=== PATIENT | male | born 1990 | race African-American/Black ===

== ENCOUNTER 2025-01-05 09:04 | Inpatient (IN) | payer OTHER ==
[~2025-01-05] VITALS: Ht 180.3 cm; Wt 113.2 kg
--- NOTE | 2025-01-05 09:45 | ED.PDOC ---
Musculoskeletal HPI Comments A 34 YEAR OLD MALE PRESENTS TO THE ED WITH COMPLAINT OF LEFT KNEE PAIN OF X3 WEEKS. PATIENT STATES THAT KNEE PAIN RADIATES DOWN LEFT LEG WITH NO ASSOCIATED ALLEVIATING FACTORS. WALKING AND PHYSICAL ACTIVITY INCREASES LEFT LOWER LEG PAIN. RECENT A FEW DAYS, SYMPTOMS WORSENED AND PATIENT CAME TO THE ED FOR FURTHER EVALUATION. PATIENT DENIES FEVER, CHILLS, SHORTNESS OF BREATH, CHEST PAIN, ABDOMINAL PAIN, NAUSEA, VOMITING, HEADACHE, OR OTHER COMPLAINTS. NO OTHER SYMPTOMS OR MODIFYING FACTORS AT THIS TIME. PATIENT IS ALERT, ORIENTED X 4, AND HAS STEADY GAIT. Chief Complaint: Lower Extremity Time Seen by MD: 09:23 Reviewed Notes: Nurses Notes, Medications, Allergies Allergies: Coded Allergies: NO KNOWN ALLERGIES (Unverified , 01/05/25) Information Source: Patient Mode of Arrival: Ambulatory Location: Left Extremity Location: Knee, Leg Timing: Weeks Prehospital treatment: None Severity: Moderate Able to Move Extremity: No Bear Weight: Limited Pain: Moderate Circumstances: Spontaneous Onset of Symptoms: Spontaneous Symptoms: Swelling, Pain DVT Risk Factors: NONE Last Tetanus: UTD Associated signs and symptoms: Knee pain, Leg pain Past Medical History PAST MEDICAL HISTORY: Denies Surgical History: Denies all surgeries Family History Family History: Reviewed,noncontributory to illness, No family hx of Cancer, No family hx of DM, No family hx of Heart nilay, No family hx of HTN, No family hx ofKidney nilay, No family hx of Liver nilay, No family hx of Lung nilay, No family hx of Stroke Social History Smoker: Non-Smoker Alcohol: Denies ETOH Use Drugs: Denies Drug Use Lives In: Home Constitutional: denies: chills, diaphoresis, fatigue, fever, malaise, sweats, weakness, others EENTM: denies: blurred vision, double vision, ear bleeding, ear discharge, ear drainage, ear pain, ear ringing, eye pain, eye redness, hearing loss, mouth pain, mouth swelling, nasal discharge, nose bleeding, nose congestion, nose pain, photophobia, tearing, throat pain, throat swelling, voice changes, others Respiratory: denies: cough, hemoptysis, orthopnea, SOB at rest, shortness of breath, SOB with excertion, stridor, wheezing, others Cardiovascular: denies: chest pain, dizzy spells, diaphoresis, Dyspnea on exertion, edema, irregular heart beat, left arm pain, lightheadedness, palpitat ions, PND, syncope, others Gastrointestinal: denies: abdomen distended, abdominal pain, blood streaked bow els, constipated, diarrhea, dysphagia, difficulty swallowing, hematemesis, melena, nausea, poor appetite, poor fluid intake, rectal bleeding, rectal pain, vomiting, others Genitourinary: denies: burning, dysuria, flank pain, frequency, hematuria, incontinence, penile discharge, penile sore, pain, testicle pain, testicle swelling, urgency, others Neurological: denies: dizziness, fainting, headache, left sided numbness, left sided weakness, numbness, paresthesia, pre-existing deficit, right sided numbness, right sided weakness, seizure, speech problems, tingling, tremors, weakness, others Musculoskeletal: reports: muscle pain, others (LEFT KNEE/LEG PAIN ); denies: back pain, gout, joint pain, joint swelling, muscle stiffness, neck pain Integumetry: denies: bruises, change in color, change in hair/nails, dryness, laceration, lesions, lumps, rash, wounds, others Allergic/Immunocompromised: denies: Difficulty Healing, Frequent Infections, Hives, Itching, others Hematologic/Lymphatic: denies: anemia, blood clots, easy bleeding, easy bruising, swollen glands, others Endocrine: denies: excessive hunger, excessive sweating, excessive thirst, excessive urination, flushing, intolerance to cold, intolerance to heat, unexplained weight gain, unexplained weight loss, others Psychiatric: denies: anxiety, bipolar disorder, depression, hopeless, panic disorder, schizophrenia, sleepless, suicidal, others All Other Systems: Reviewed and Negative Physical Exam General Appearance: No Apparent Distress, Normal HEENT: Normal ENT Inspection, PERRL/EOMI, Pharynx Normal, TMs Normal Neck: Full Range of Motion, Non-Tender, Normal, Normal Inspection Respiratory: Chest Non-Tender, Lungs Clear, No Accessory Muscle Use, No Respiratory Distress, Normal Breath Sounds Cardiovascular: No Edema, No JVD, No Murmur, No Gallop, Normal Peripheral Pulses, Regular Rate/Rhythm Breast Exam: Deferred Gastrointestinal: No Organomegaly, Non Tender, No Pulsatile Mass, Normal Bowel Sounds, Soft Genitalia: Deferred Pelvic: Deferred Rectal: Deferred Extremities: No calf tenderness, Normal capillary refill, Normal range of motion, No pedal edema, Swelling (TENDERNESS AND MILD SWELLING ON LEFT LOWER LEG, +DVT SIGNS. ), Tender (TENDERNESS, MILD SWELLING AND ERYTHEMA ON LEFT LOWER LEG. ) Musculoskeletal : Apperance: Normal Neurologic: Alert, fashion artist II-XII nml as Tested, No Motor Deficits, Normal Affect, Normal Mood, No Sensory Deficits Cerebellar Function: Normal Reflexes: Normal Skin: Dry, Normal Color, Warm Peripheral Pulses: 2+ carotid (R), 2+ carotid (L), 2+ femoral (L), 2+ dorsalis pedis (R), 2+ dorsalis pedis (L) Lymphatic: No Adenopathy Was a procedure done? Was a procedure done?: No Differential Diagnosis EXT Differential Diagnosis: Cellulitis, Deep Vein Thrombosis, Fracture, Sprain, Laceration, Contusion, Strain, Bursitis X-Ray, Labs, Meds, VS Vital Signs Date Time Temp Pulse Resp B/P (MAP) Pulse Ox O2 Delivery O2 Flow Rate FiO2 01/05/25 13:00 98.3 82 14 149/109 (122) 92 98.3 01/05/25 12:32 162/117 01/05/25 11:49 84 13 99 Room Air* 0 21 01/05/25 11:31 184/125 01/05/25 11:20 84 13 184/125 (144) 99 01/05/25 09:19 98.8 109 16 184/127 (146) 95 98.8 182/102 (128) Lab Test 01/05/25 11:10 01/05/25 10:53 Range/Units White Blood Count 5.9 4.4-10.8 10^3/uL Red Blood Count 5.38 4.5-5.90 10^6/uL Hemoglobin 16.3 13.5-17.5 g/dL Hematocrit 49.6 41.0-53.0 % Mean Corpuscular Volume 92.2 80.0-100.0 fL Mean Corpuscular Hemoglobin 30.3 28.0-32.0 pg Mean Corpuscular Hemoglobin Concent 32.9 32.0-36.0 g/dL Red Cell Distribution Width 16.3 H 11.8-14.3 % Platelet Count 418 140-450 10^3/uL Mean Platelet Volume 7.2 6.9-10.8 fL Neutrophils (%) (Auto) 51.2 37.0-80.0 % Lymphocytes (%) (Auto) 36.3 10.0-50.0 % Monocytes (%) (Auto) 9.2 0.0-12.0 % Eosinophils (%) (Auto) 1.8 0.0-7.0 % Basophils (%) (Auto) 1.5 0.0-2.0 % Neutrophils # (Auto) 3.0 1.6-8.6 10 ^3/uL Lymphocytes # (Auto) 2.2 0.4-5.4 10 ^3/uL Monocytes # (Auto) 0.5 0-1.3 10 ^3/uL Eosinophils # (Auto) 0.1 0-0.8 10 ^3/uL Basophils # (Auto) 0.1 0-0.2 10 ^3/uL Nucleated Red Blood Cells 0.1 % Sodium Level 141 136-145 mmol/L Potassium Level 4.2 3.5-5.1 mmol/L Chloride Level 105 98-107 mmol/L Carbon Dioxide Level 27 20-31 mmol/L Anion Gap 9 5-15 Blood Urea Nitrogen 7 L 9-23 mg/dL Creatinine 1.08 0.700-1.30 mg/dL Glomerular Filtration Rate Calc 93 >90 mL/min BUN/Creatinine Ratio 6.5 L 10.0-20.0 Serum Glucose 103 74-106 mg/dL Calcium Level 10.5 H 8.7-10.4 mg/dL Prothrombin Time 10.5 9.3-11.8 sec Prothrombin Time INR 0.99 0.9-1.15 Current Medications Medications (Trade) Dose Ordered Sig/Virgen Route Start Time Stop Time Status Last Admin Enoxaparin Sodium (Lovenox) 90 mg ONCE ONCE SC 01/05/25 10:45 01/05/25 10:48 DC 01/05/25 11:01 Sodium Chloride 1,000 ml @ 150 mls/hr Q6H40M ONCE IV 01/05/25 10:45 01/05/25 17:24 01/05/25 10:55 Acetaminophen/ Hydrocodone Bitart ([place] 10/325MG Tab) 1 tab ONCE ONCE PO 01/05/25 10:45 01/05/25 10:48 DC 01/05/25 11:01 Clonidine HCl (Catapres Tablet) 0.2 mg ONCE ONCE PO 01/05/25 11:30 01/05/25 11:31 DC 01/05/25 11:31 LT Lower DVT HISTORY: left lower leg pain COMPARISON: None TECHNIQUE: Duplex doppler evaluation of the deep venous system of the lower extremity from the common femoral veins, superficial femoral vein, great saphenous vein, deep femoral vein, popliteal vein, and calf veins, including color doppler and spectral/pulsed waveform analysis, was performed. FINDINGS: Left: - Common femoral vein: Compressible - Deep femoral vein: Compressible - Femoral vein: Compressible - Popliteal vein: Compressible - Posterior tibial vein: No compressible - Other: Nothing IMPRESSION: Left PTV DVT. X-Ray, Labs, Meds, VS Comment EXTERNAL MEDICAL RECORDS REVIEWED: [NONE] INDEPENDENT HISTORIANS: [NONE] SOCIAL DETERMINANTS OF HEALTH: [NONE] LABS ORDERED: NONE REVIEWED AND INTERPRETED RESULTS: NONE IMAGING ORDERED: LT LOWER DVT TREATMENTS ORDERED: HEPLOCK IV, LOVENOX 100MG/ML, SODIUM CHLORIDE 0.9% , NORCO 10/325 MG, CLONIDINE 0.2MG PO PROCEDURES PERFORMED: NONE CRITICAL CARE TIME: NONE Images Reviewed?: Images reviewed and evaluated by me Time of 1ST Reevaluation: 11:03 Reevaluation 1ST: Unchanged Patient Education/Counseling: Diagnosis, Treatment Family Education/Counseling: Diagnosis, Treatment Departure 1 Departure Time of Disposition: 11:00 Impression: Primary Impression: Left leg DVT Qualified Codes: I82.432 - Acute embolism and thrombosis of left popliteal vein Additional Impression: Uncontrolled hypertension Disposition: ADMITTED INPATIENT Condition: Serious Critical Care Note Critical Care Time?: No Stability Stability form required: Yes Unstable for transfer: Requires medication, ED Physician Assesment, Possible rapid decline Heart Score Heart Score: Heart Score Response (Comments) Value History N/A 0 EKG N/A 0 Age N/A 0 Risk Factors N/A 0 Troponin N/A 0 Total 0 LUX VILLANUEVA Jan 05, 2025 09:45
--- NOTE | 2025-01-05 10:36 | DVH ---
US LT Lower DVT HISTORY: left lower leg pain COMPARISON: None TECHNIQUE: Duplex doppler evaluation of the deep venous system of the lower extremity from the common femoral veins, superficial femoral vein, great saphenous vein, deep femoral vein, popliteal vein, an d calf veins, including color doppler and spectral/pulsed waveform analysis, was performed. FINDINGS: Left: - Common femoral vein: Compressible - Deep femoral vein: Compressible - Femoral vein: Compressible - Popliteal vein: Compressible - Posterior tibial vein: No compressible - Other: Nothing IMPRESSION: Left PTV DVT.
[2025-01-05] MEDS: SODIUM CHLORIDE 0.9% 1,000 ML IV ONE (10:55)
[2025-01-05] MEDS: ENOXAPARIN SOD 100 MG/1 ML SYRINGE SC ONE (11:01)
[2025-01-05] MEDS: HYDROcodone-ACET 10/325MG TAB PO ONE (11:01)
[2025-01-05 11:37] LABS: Hematocrit 49.6 % (41.0-53.0); Hemoglobin 16.3 g/dL (13.5-17.5); Mean Corpuscular Hemoglobin 30.3 pg (28.0-32.0); Mean Corpuscular Volume 92.2 fL (80.0-100.0); Nucleated Red Blood Cells % 0.1 %
[2025-01-05 11:38] LABS: Anion Gap 9 (5-15); Carbon Dioxide 27 mmol/L (20-31); Chloride 105 mmol/L (98-107); Potassium 4.2 mmol/L (3.5-5.1); Sodium 141 mmol/L (136-145)
[2025-01-05 11:43] LABS: Glucose 103 mg/dL (74-106)
[2025-01-05 11:43] LABS: INR 0.99 (0.9-1.15); Prothrombin Time 10.5 sec (9.3-11.8)
[2025-01-05 11:44] LABS: BUN/Creatinine Ratio 6.5 (10.0-20.0)
[2025-01-05 11:46] LABS: Blood Urea Nitrogen 7 mg/dL (9-23); Calcium 10.5 mg/dL (8.7-10.4)
[2025-01-05 11:49] VITALS: PULSE 84; RESP 13; O2SAT 99
[2025-01-05] MEDS ORDERED: NITROGLYCERIN 0.4 MG SL TAB SL PRN (13:30)
[2025-01-05] MEDS ORDERED: ACETAMINOPHEN 325 MG TAB PO PRN (13:30)
[2025-01-05] MEDS ORDERED: MORPHINE SULFATE INJ 2 MG/ml SYRG IV PRN (13:30)
[2025-01-05] MEDS ORDERED: ONDANSETRON HCL 4 MG/2 ML VIAL IV PRN (13:30)
--- NOTE | 2025-01-05 13:35 | DVHHP2 ---
History of Present Illness Reason for Visit: Left lower extremity pain History of Present Illness Barber Starks is a 34-year-old male with no past medical history who presents to the ED with left lower extremity pain that started from the back of the left knee down to his ankle for the last 3 weeks. Patient reports that his current pain is 7/10 throbbing and constant. He states that standing makes it worse. He reports that he was traveling back and forth down to [place] while driving. 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 He also reports that he lives at home with his who does not drink. Patient denies any chest pain, shortness of breath, fever, chills, lightheadedness, weakness, dizziness, abdominal pain, nausea, vomiting, diarrhea, recent trauma or injury, recent ingestion of spoiled food, recent sick contacts, or urinary symptoms. Past Surgical History: None Family History: Hypertension, Other (Mom with hypertension and asthma) Smoke: No ALCOHOL: heavy Drugs: None Lives: with Family Domestic Violence: Neg Review of Systems Musculoskeletal: leg pain Allergies: Coded Allergies: NO KNOWN ALLERGIES (Unverified , 01/05/25) Exam Vital Signs Vital Signs Date Time Temp Pulse Resp B/P (MAP) Pulse Ox O2 Delivery O2 Flow Rate FiO2 01/05/25 12:32 162/117 01/05/25 11:49 84 13 99 Room Air* 0 21 01/05/25 09:19 98.8 98.8 General Appearance: Alert, Oriented X3, Cooperative, No acute distress HEENT: Atraumatic, PERRLA, EOMI, Mucous membr. moist/pink Respiratory: Clear to auscultation, Normal air movement Cardiovascular: Normal S1, Normal S2, No murmurs Abdominal: Normal bowel sounds Extremities: No clubbing, No cyanosis, No edema, Normal pulses Skin: No significant lesion Neuro: Normal gait, Normal speech, Strength at 5/5 X4 ext, Normal tone, Sensation intact Psych/Mental Status: Mental status NL, Mood NL Labs/Xrays Labs Test 01/05/25 11:10 01/05/25 10:53 Range/Units White Blood Count 5.9 4.4-10.8 10^3/uL Red Blood Count 5.38 4.5-5.90 10^6/uL Hemoglobin 16.3 13.5-17.5 g/dL Hematocrit 49.6 41.0-53.0 % Mean Corpuscular Volume 92.2 80.0-100.0 fL Mean Corpuscular Hemoglobin 30.3 28.0-32.0 pg Mean Corpuscular Hemoglobin Concent 32.9 32.0-36.0 g/dL Red Cell Distribution Width 16.3 H 11.8-14.3 % Platelet Count 418 140-450 10^3/uL Mean Platelet Volume 7.2 6.9-10.8 fL Neutrophils (%) (Auto) 51.2 37.0-80.0 % Lymphocytes (%) (Auto) 36.3 10.0-50.0 % Monocytes (%) (Auto) 9.2 0.0-12.0 % Eosinophils (%) (Auto) 1.8 0.0-7.0 % Basophils (%) (Auto) 1.5 0.0-2.0 % Neutrophils # (Auto) 3.0 1.6-8.6 10 ^3/uL Lymphocytes # (Auto) 2.2 0.4-5.4 10 ^3/uL Monocytes # (Auto) 0.5 0-1.3 10 ^3/uL Eosinophils # (Auto) 0.1 0-0.8 10 ^3/uL Basophils # (Auto) 0.1 0-0.2 10 ^3/uL Nucleated Red Blood Cells 0.1 % Sodium Level 141 136-145 mmol/L Potassium Level 4.2 3.5-5.1 mmol/L Chloride Level 105 98-107 mmol/L Carbon Dioxide Level 27 20-31 mmol/L Anion Gap 9 5-15 Blood Urea Nitrogen 7 L 9-23 mg/dL Creatinine 1.08 0.700-1.30 mg/dL Glomerular Filtration Rate Calc 93 >90 mL/min BUN/Creatinine Ratio 6.5 L 10.0-20.0 Serum Glucose 103 74-106 mg/dL Calcium Level 10.5 H 8.7-10.4 mg/dL Prothrombin Time 10.5 9.3-11.8 sec Prothrombin Time INR 0.99 0.9-1.15 US LT Lower DVT HISTORY: left lower leg pain COMPARISON: None TECHNIQUE: Duplex doppler evaluation of the deep venous system of the lower extremity from the common femoral veins, superficial femoral vein, great saphenous vein, deep femoral vein, popliteal vein, and calf veins, including color doppler and spectral/pulsed waveform analysis, was performed. FINDINGS: Left: - Common femoral vein: Compressible - Deep femoral vein: Compressible - Femoral vein: Compressible - Popliteal vein: Compressible - Posterior tibial vein: No compressible - Other: Nothing IMPRESSION: Left PTV DVT. SEPSIS Sepsis Screen Date sepsis recognized/suspect: Jan 05, 2025 Time Sepsis recognized/suspect: 918 Recent Procedure: No On Antibiotic Therapy: No Respiratory Rate >20: No Heart Rate >90: Yes Temp<36 C (96.8 F) or >38.3 C: No SBP <90 or MAP <65 mmHG: No New Acute Mental Status Change: No Is the patient on CPAP, BIPAP,: No Physician Orders Lt Lower Dvt (01/05/25 09:23) Heplock Iv (01/05/25 ) Sodium Chloride 0.9% (01/05/25 10:45) Enoxaparin Sodium (Lovenox) (01/05/25 22:00) Multiple Vitamin W Mineral Tab (Mvi W/ M (01/06/25 10:00) Thiamine Tab (01/06/25 10:00) Folic Acid Tablet (01/06/25 10:00) Admit (01/05/25 13:24) Allergies (01/05/25 13:24) Code Status (01/05/25 13:24) Hydrocodone-Acet 5/325mg Tab ([place] 5/32 (01/05/25 13:30) Ondansetron Hcl (Zofran) (01/05/25 13:30) Complete Blood Count (01/06/25 04:00) Comprehensive Metabolic Panel (01/06/25 04:00) Cardiac Diet-2gna,Lofat,Lochol (01/05/25 Lunch) Acetaminophen Tablet (Tylenol Tablet) (01/05/25 13:30) Nitroglycerin Sublingual (Ntrostat Subli (01/05/25 13:30) Morphine Sulfate Injection (01/05/25 13:30) Stat Ekg For Chest Pain (01/05/25 13:24) Notify Md Of Changes From Base (01/05/25 13:24) Statement Distribution Clerk For 24 Hours (01/05/25 13:24) Emergency Dysrhythmia Protocol (01/05/25 13:24) Rhythm Strips Once Every Shift (01/05/25 13:24) Oxygen By Nasal Cannula (01/05/25 13:24) Urinalysis (01/05/25 13:27) Drug Screen (01/05/25 13:27) Vital Signs Date Time Temp Pulse Resp B/P (MAP) Pulse Ox O2 Delivery O2 Flow Rate FiO2 01/05/25 12:32 162/117 01/05/25 11:49 84 13 99 Room Air* 0 21 01/05/25 11:31 184/125 01/05/25 11:20 84 13 184/125 (144) 99 01/05/25 09:19 98.8 109 16 184/127 (146) 95 98.8 182/102 (128) Laboratory Tests Test 01/05/25 11:10 White Blood Count 5.9 10^3/uL (4.4-10.8) Medications Medications Dose Ordered Sig/Virgen Route Start Time Stop Time Status Last Admin Dose Admin Acetaminophen/ Hydrocodone Bitart 1 tab ONCE ONCE PO 01/05/25 10:45 01/05/25 10:48 DC 01/05/25 11:01 1 TAB Clonidine HCl 0.2 mg ONCE ONCE PO 01/05/25 11:30 01/05/25 11:31 DC 01/05/25 11:31 0.2 MG Enoxaparin Sodium 90 mg ONCE ONCE SC 01/05/25 10:45 01/05/25 10:48 DC 01/05/25 11:01 90 MG Sodium Chloride 1,000 ml @ 150 mls/hr Q6H40M ONCE IV 01/05/25 10:45 01/05/25 17:24 01/05/25 10:55 150 MLS/HR Assessment/Plan Assessment/Plan Assessment Intractable leg pain secondary to LLE DVT Hypertension likely induced by pain Obesity Alcohol use Plan Admit to tele Multivitamins Thiamine Folic acid Therapeutic Lovenox Antihypertensives Antiemetics Pain management NS 1 L given ED PT/INR Ultrasound venous lower extremity noted Diet No home medications per patient DVT prophylaxis-on Lovenox PUD prophylaxis-PPIs Discussed plan of care with patient and nurse Counseled patient on lifestyle modifications, diet, and exercise Counseled patient on alcohol cessation [id number] Advanced care planning discussed [id number] Preventive counseling healthy eating habits, physical activity, and regular checkups Plan discussed with: Patient My Orders Orders - JARAD HAJI Procedure Category Date Status Time Enoxaparin Sodium PHA 01/05/25 Transmitted (Lovenox) 22:00 Multiple Vitamin W PHA 01/06/25 Transmitted Mineral Tab (Mvi W/ M 10:00 Thiamine Tab PHA 01/06/25 Transmitted 10:00 Folic Acid Tablet PHA 01/06/25 Transmitted 10:00 Admit ADMIT 01/05/25 Transmitted 13:24 Allergies BELA 01/05/25 Transmitted 13:24 Code Status CODE 01/05/25 Transmitted 13:24 Hydrocodone-Acet PHA 01/05/25 Transmitted 5/325mg Tab ([place] 13:30 Ondansetron Hcl PHA 01/05/25 Transmitted (Zofran) 13:30 Complete Blood Count LAB 01/06/25 Verified 04:00 Comprehensive LAB 01/06/25 Verified Metabolic Panel 04:00 Cardiac DIET 01/05/25 Transmitted Diet-2gna,Lofat,Lochol Lunch Acetaminophen Tablet [facility] 01/05/25 Transmitted (Tylenol Tablet) 13:30 Nitroglycerin [facility] 01/05/25 Transmitted Sublingual (Ntrostat 13:30 Morphine Sulfate PHA 01/05/25 Transmitted Injection 13:30 Stat Ekg For Chest [facility] 01/05/25 Transmitted Pain 13:24 Notify Md Of Changes [facility] 01/05/25 Transmitted From Base 13:24 Statement Distribution Clerk For [facility] 01/05/25 Transmitted 24 Hours 13:24 Emergency Dysrhythmia [facility] 01/05/25 Transmitted Protocol 13:24 Rhythm Strips Once [facility] 01/05/25 Transmitted Every Shift 13:24 Oxygen By Nasal RT 01/05/25 Transmitted Cannula 13:24 Urinalysis LAB 01/05/25 Verified 13:27 Drug Screen LAB 01/05/25 Verified 13:27 Date of Service: Jan 05, 2025 Billing Provider: JARAD HAJI Common Visit Codes: [id number] INP/OBS CARE (HIGH) Secondary Visit Codes: [id number] COUNSELING IND, [id number] CARE PLAN 30 MINUTES JARAD HAJI Jan 05, 2025 13:35
[2025-01-05] MEDS: PANTOPRAZOLE 40 MG/10 ML VIAL INJ IV SCH (14:13)
[2025-01-05 15:08] LABS: Amphetamine Screen, Urine Neg (NEGATIVE); Barbiturate Scree,Urine Neg (NEGATIVE); Benzodiazephine Screen, Urine Neg (NEGATIVE); Cannabinoid Screen, Urine Neg (NEGATIVE); Cocaine Screen, Urine Neg (NEGATIVE); Opiate Scree,Urine Pos (NEGATIVE); Phencyclidine Screen, Urine Neg (NEGATIVE)
[2025-01-05 15:09] LABS: Urine Protein, UAD TRACE (Negative)
[2025-01-05 18:30] VITALS: BP 151/97; PULSE 78; RESP 18; TEMP 97.7; O2SAT 99
[2025-01-05] MEDS: HYDROcodone-ACET 5/325MG TAB PO PRN (18:53)
[2025-01-05 20:00] VITALS: PULSE 77
[2025-01-05 21:00] VITALS: BP 149/104; PULSE 81; RESP 17; TEMP 98.2; O2SAT 97
[2025-01-05] MEDS: ENOXAPARIN SOD 100 MG/1 ML SYRINGE SC SCH (21:33)
[2025-01-06] VITALS (7 sets, daily range): BP systolic 112–171; BP diastolic 66–122; PULSE 62–105; RESP 16–20; TEMP 97.8–98.7; O2SAT 94–99
[2025-01-06] MEDS: hydrALAZINE HCL 20 MG/ML VL IV PRN (05:36)
[2025-01-06 07:48] LABS: Hematocrit 43.6 % (41.0-53.0); Hemoglobin 14.7 g/dL (13.5-17.5); Mean Corpuscular Hemoglobin 31.0 pg (28.0-32.0); Mean Corpuscular Volume 92.0 fL (80.0-100.0); Nucleated Red Blood Cells % 0.3 %
[2025-01-06 08:16] LABS: Alkaline Phosphatase 62 U/L (46-116); Anion Gap 11 (5-15); BUN/Creatinine Ratio 10.9 (10.0-20.0); Blood Urea Nitrogen 11 mg/dL (9-23); Calcium 9.6 mg/dL (8.7-10.4); Carbon Dioxide 27 mmol/L (20-31); Chloride 101 mmol/L (98-107); Glucose 87 mg/dL (74-106); Potassium 3.8 mmol/L (3.5-5.1); Sodium 139 mmol/L (136-145); Total Protein 7.0 g/dL (5.7-8.2)
[2025-01-06 08:17] LABS: Alanine Aminotransferase 56 U/L (7-40); Albumin 4.3 g/dL (3.2-4.8); Bilirubin, Total 0.8 mg/dL (0.2-1.0)
[2025-01-06] MEDS: THIAMINE HCL 100 MG TAB PO SCH (09:37)
[2025-01-06] MEDS: MULTIPLE VITAMINS W/ MINERALS TAB PO SCH (09:37)
[2025-01-06] MEDS: FOLIC ACID 1 MG TAB PO SCH (09:37)
[2025-01-06] MEDS: ACETAMINOPHEN 325 MG TAB PO SCH (14:00)
[2025-01-06] MEDS: MORPHINE SULFATE 4 MG/ML SYR/VIAL IV PRN (14:22)
--- NOTE | 2025-01-06 14:30 | DVHPN2 ---
Assessment/Plan Assessment/Plan progress note 34 M with daily alcohol use admitted for leg pain, found to have L pop dvt physical exam aox4 PERLLA MMM clear breath sounds s1 s2 rrr abdomen soft ankle edema LLE labs ekg imaging reviewed assessment and plan L leg DVT possibly unprovoked elevated BP alcohol use alcohol withdrawal? CIWA [place] taper (only evidence of withdrawal is elevated Bp and slight tremor) lovenox therapeutic switch to Eliquis tomorrow thiamine pain mgmt diet reg dvt ppx on AC full code Plan discussed with: Patient My Orders Orders - MIGUEL AGUILAR MD Procedure Category Date Status Time Morphine Sulfate PHA 01/06/25 In Process Injection 11:45 Acetaminophen Tablet PHA 01/06/25 In Process (Tylenol Tablet) 14:00 Discontinue Tele BELA 01/06/25 In Process 14:24 Transfer Orders XFER 01/06/25 Transmitted 14:24 Basic Metabolic Panel LAB 01/07/25 Verified 04:00 Complete Blood Count LAB 01/07/25 Verified 04:00 PTPTT LAB 01/07/25 Verified 04:00 Etoh Withdrawal BELA 01/06/25 In Process Assessment 14:24 Etoh Withdrawal BELA 01/06/25 In Process Assessment 14:24 Chlordiazepoxide Hcl PHA 01/06/25 Logged Capsule (Librium Ca 14:30 Chlordiazepoxide Hcl PHA 01/07/25 Logged Capsule (Librium Ca 07:00 Date of Service: Jan 06, 2025 Billing Provider: MIGUEL AGUILAR MD Common Visit Codes: [id number] INP/OBS CARE(HIGH) MIGUEL AGUILAR MD Jan 06, 2025 14:29
[2025-01-07] VITALS (7 sets, daily range): BP systolic 108–169; BP diastolic 67–121; PULSE 81–128; RESP 17–100; TEMP 97–98.7; O2SAT 97–100
[2025-01-07] MEDS: hydrALAZINE HCL 20 MG/ML VL IV PRN (01:51)
[2025-01-07 06:17] LABS: Hematocrit 44.2 % (41.0-53.0); Hemoglobin 15.3 g/dL (13.5-17.5); Mean Corpuscular Hemoglobin 31.6 pg (28.0-32.0); Mean Corpuscular Volume 91.2 fL (80.0-100.0); Nucleated Red Blood Cells % 0.2 %
[2025-01-07 06:28] LABS: INR 0.97 (0.9-1.15); Partial Thromboplastin Time 31.3 SEC (24.5-34.5); Prothrombin Time 10.3 sec (9.3-11.8)
[2025-01-07 06:29] LABS: Anion Gap 11 (5-15); Carbon Dioxide 28 mmol/L (20-31); Chloride 99 mmol/L (98-107); Potassium 3.7 mmol/L (3.5-5.1); Sodium 138 mmol/L (136-145)
[2025-01-07 06:31] LABS: Calcium 10.3 mg/dL (8.7-10.4)
[2025-01-07 06:36] LABS: BUN/Creatinine Ratio 10.1 (10.0-20.0); Blood Urea Nitrogen 10 mg/dL (9-23); Glucose 76 mg/dL (74-106)
[2025-01-07] MEDS ORDERED: IBU600T PO (13:43)
[2025-01-07] MEDS ORDERED: THIA100T10 PO (13:43)
[2025-01-07] MEDS ORDERED: APIX5TAB PO (13:43)
[2025-01-07] MEDS ORDERED: LOSA-534 PO (13:45)
--- NOTE | 2025-01-07 13:47 | DVHDS2 ---
Discharge Summary Date of Admission Jan 05, 2025 at 13:24 Date of Discharge: Jan 07, 2025 Labs/Diagnostic Data: Laboratory Results Test 01/07/25 04:41 01/06/25 04:27 01/05/25 14:02 White Blood Count 6.3 10^3/uL (4.4-10.8) Red Blood Count 4.85 10^6/uL (4.5-5.90) Hemoglobin 15.3 g/dL (13.5-17.5) Hematocrit 44.2 % (41.0-53.0) Mean Corpuscular Volume 91.2 fL (80.0-100.0) Mean Corpuscular Hemoglobin 31.6 pg (28.0-32.0) Mean Corpuscular Hemoglobin Concent 34.7 g/dL (32.0-36.0) Red Cell Distribution Width 15.7 % (11.8-14.3) Platelet Count 399 10^3/uL (140-450) Mean Platelet Volume 7.5 fL (6.9-10.8) Neutrophils (%) (Auto) 51.0 % (37.0-80.0) Lymphocytes (%) (Auto) 33.7 % (10.0-50.0) Monocytes (%) (Auto) 11.3 % (0.0-12.0) Eosinophils (%) (Auto) 3.1 % (0.0-7.0) Basophils (%) (Auto) 0.9 % (0.0-2.0) Neutrophils # (Auto) 3.2 10 ^3/uL (1.6-8.6) Lymphocytes # (Auto) 2.1 10 ^3/uL (0.4-5.4) Monocytes # (Auto) 0.7 10 ^3/uL (0-1.3) Eosinophils # (Auto) 0.2 10 ^3/uL (0-0.8) Basophils # (Auto) 0.1 10 ^3/uL (0-0.2) Nucleated Red Blood Cells 0.2 % Prothrombin Time 10.3 sec (9.3-11.8) Prothrombin Time INR 0.97 (0.9-1.15) Activated Partial Thromboplast Time 31.3 SEC (24.5-34.5) Sodium Level 138 mmol/L (136-145) Potassium Level 3.7 mmol/L (3.5-5.1) Chloride Level 99 mmol/L (98-107) Carbon Dioxide Level 28 mmol/L (20-31) Anion Gap 11 (5-15) Blood Urea Nitrogen 10 mg/dL (9-23) Creatinine 0.99 mg/dL (0.700-1.30) Glomerular Filtration Rate Calc 103 mL/min (>90) BUN/Creatinine Ratio 10.1 (10.0-20.0) Serum Glucose 76 mg/dL (74-106) Calcium Level 10.3 mg/dL (8.7-10.4) Total Bilirubin 0.8 mg/dL (0.2-1.0) Aspartate Amino Transferase (AST) 83 U/L (13-40) Alanine Aminotransferase (ALT) 56 U/L (7-40) Alkaline Phosphatase 62 U/L (46-116) Total Protein 7.0 g/dL (5.7-8.2) Albumin 4.3 g/dL (3.2-4.8) Urine Color Yellow (Yellow) Urine Clarity Clear (Clear) Urine pH 5.5 (5.0-9.0) Urine Specific [place] 1.023 (1.001-1.035) Urine Protein Trace (Negative) Urine Ketones Negative (Negative) Urine Blood Negative /uL (Negative) Urine Nitrite Negative (Negative) Urine Bilirubin Negative (Negative) Urine Urobilinogen Normal mg/dL (Negative) Urine Leukocyte Esterase Negative /uL (Negative) Urine RBC 1 /hpf (0 - 3) Urine Microscopic WBC < 1 /HPF (0-3) Urine Squamous Epithelial Cells None seen /hpf (<5) Urine Bacteria None seen /hpf (None Seen) Urine Mucus Few (None Seen) Urine Glucose Normal mg/dL (Normal) Urine Opiates Screen Pos (NEGATIVE) Urine Fentanyl Screen Neg (NEGATIVE) Urine Barbiturates Screen Neg (NEGATIVE) Urine Phencyclidine Screen Neg (NEGATIVE) Urine Amphetamines Screen Neg (NEGATIVE) Urine Benzodiazepines Screen Neg (NEGATIVE) Urine Cocaine Screen Neg (NEGATIVE) Urine Cannabinoids Screen Neg (NEGATIVE) Other Laboratory Tests 01/07/25 04:41 Brief Hx & Hospital Course: 34 M with daily alcohol use admitted for leg pain, found to have L pop dvt. he also admitted to ~300cc liquor daily. tapered on librium, started on lovenox. will dc with eliquis, motrin. also have htn, ran out of med. starting losartan. dc clinic in 7 days. needs PCP for hypercoagulability w/u Condition at Discharge: Good Final Diagnosis/Problems List DVT not clear if unprovoked alcohol use possible alcohol withdrawal HTN Discharge Disposition: Home Discharge Instruct/Medications Diet: Cardiac 2g Na,low cholest Activity: No Restrictions, As Tolerated Follow Up/Referral: dc clinic Medications: eliquis 10mg BID 7 days followed by 5mg BID Scheduled Apixaban Base (Eliquis), 5 MG PO BID Apixaban Base (Eliquis), 10 MG PO BID Losartan Potassium (Losartan Potassium), 1 TAB PO DAILY Thiamine Hcl (Vitamin B-1), 100 MG PO DAILY Scheduled PRN Ibuprofen Micronized (Motrin Tablet), 600 MG PO TID PRN Discharge Statement: "Patient was advised to return to the ER or call 911 if any headaches, dizziness, shortness of breath, chest pain, abdominal pain, bleeding, fevers, or worsening of medical condition. Patient was counseled about treatment plan, medications, possible side effects, patientverbalized understanding. All questions were answered to the best of my ability. This discharge took greater then 30 minutes in planning, reviewing documentation, counseling the patient, and discussing with other team members." ASSESSMENT ASSESSMENT Assessment DVT not clear if unprovoked alcohol use possible alcohol withdrawal HTN Date of Service: Jan 07, 2025 Billing Provider: MIGUEL AGUILAR MD Common Visit Codes: 71059-THQ/OBS DISCH DAY >30min MIGUEL AGUILAR MD Jan 07, 2025 13:47
== END 2025-01-07 17:41 | disposition home or self-care (01) | DRG 300 ==
LOC: ER 09:04 → OVERFLOW 13:24 → TELE-WESTW 18:17 → WEST WING 01-06 14:50
DX: I82.442 Acute embolism and thrombosis of left tibial vein (principal); F10.939 Alcohol use, unspecified with withdrawal, unspecified; I10 Essential (primary) hypertension; Z68.31 Body mass index [BMI] 31.0-31.9, adult; E66.9 Obesity, unspecified; Z82.49 Family history of ischemic heart disease and other diseases of the circulatory system; Z82.5 Family history of asthma and other chronic lower respiratory diseases; Z87.891 Personal history of nicotine dependence; Y90.9 Presence of alcohol in blood, level not specified
CPT/HCPCS: 36415; 80048; 80053; 80307; 81001; 85025; 85610; 85730; 93971; 96360; 96372; G0378; J2470

== ENCOUNTER 2025-01-09 14:46 | Inpatient (IN) | payer OTHER ==
[~2025-01-09] VITALS: Ht 180.3 cm; Wt 111.7 kg
[~2025-01-09 14:46] MED LIST: APIX5TAB PO; IBU600T PO; LOSA-534 PO; THIA100T10 PO
--- NOTE | 2025-01-09 15:10 | ED.PDOC ---
History of Present Illness HPI Comments 34-year-old male with PMHx DVT presents with a chief complaint of SOB and neck pain. Patient mentions that he was here on Wednesday and diagnosed with a DVT in his left leg, was admitted and discharged on Wednesday, had follow-up appointment with his primary care doctor today, and was referred back to the ER to rule out PE. Patient mentions that he had complained of SOB and sharp neck pain to the back of his neck. Chief Complaint: Lower Extremity Time Seen by MD: 15:02 Primary Care Provider: NORAH Calhoun Notes: Nurses Notes, Medications, Allergies Allergies: Coded Allergies: NO KNOWN ALLERGIES (Unverified , 01/05/25) Home Meds Active Scripts Losartan Potassium (Losartan Potassium) 50 Mg Tab, 1 TAB PO DAILY, #90 TAB 1 Refill Prov:MIGULE AGUILAR MD 01/07/25 Thiamine Hcl (VITAMIN B-1) 100 Mg Tb, 100 MG PO DAILY for 14 Days, #14 TAB Prov:MIGUEL AGUILAR MD 01/07/25 Ibuprofen Micronized (MOTRIN TABLET) 600 Mg Tb, 600 MG PO TID PRN for 10 Days, #30 TAB *Black box warning-NSAIDS can increase risk of PR & hypertension, GI irritation, ulceration, bleed, perferation. Do not use post cardiac surgery. Use short duration/lowest effective dose. Prov:MIGUEL AGUILAR MD 01/07/25 Apixaban Base (ELIQUIS) 5 Mg Tab, 10 MG PO BID for 7 Days, #7 TAB 10MG BID X 7 DAYS THEN 5MG PO BID FOR AT LEAST 6 MONTHS FOR DVT/PE TREATMENT Prov:MIGUEL AGUILAR MD 01/07/25 Apixaban Base (ELIQUIS) 5 Mg Tab, 5 MG PO BID for 30 Days, #60 TAB 5 Refills Prov:MIGUEL AGUILAR MD 01/07/25 Information Source: Patient Mode of Arrival: Ambulatory Severity: Moderate Timing: Days Duration: Since onset Prehospital treatment: None Past Medical History PAST MEDICAL HISTORY: Denies Surgical History: Denies all surgeries Family History Family History: Reviewed,noncontributory to illness, No family hx of Cancer, No family hx of DM, No family hx of Heart nilay, No family hx of HTN, No family hx ofKidney nialy, No family hx of Liver nilay, No family hx of Lung nilay, No family hx of Stroke Social History Smoker: Non-Smoker Alcohol: Denies ETOH Use Drugs: Denies Drug Use Lives In: Home Constitutional: denies: chills, diaphoresis, fatigue, fever, malaise, sweats, weakness, others EENTM: denies: blurred vision, double vision, ear bleeding, ear discharge, ear drainage, ear pain, ear ringing, eye pain, eye redness, hearing loss, mouth pain, mouth swelling, nasal discharge, nose bleeding, nose congestion, nose pain, photophobia, tearing, throat pain, throat swelling, voice changes, others Respiratory: reports: shortness of breath; denies: cough, hemoptysis, orthopnea, SOB at rest, SOB with excertion, stridor, wheezing, others Cardiovascular: denies: chest pain, dizzy spells, diaphoresis, Dyspnea on exertion, edema, irregular heart beat, left arm pain, lightheadedness, palpitations, PND, syncope, others Gastrointestinal: denies: abdomen distended, abdominal pain, blood streaked bowels, constipated, diarrhea, dysphagia, difficulty swallowing, hematemesis, melena, nausea, poor appetite, poor fluid intake, rectal bleeding, rectal pain, vomiting, others Genitourinary: denies: burning, dysuria, flank pain, frequency, hematuria, incontinence, penile discharge, penile sore, pain, testicle pain, testicle s welling, urgency, others Neurological: denies: dizziness, fainting, headache, left sided numbness, left sided weakness, numbness, paresthesia, pre-existing deficit, right sided numbness, right sided weakness, seizure, speech problems, tingling, tremors, weakness, others Musculoskeletal: reports: neck pain; denies: back pain, gout, joint pain, joint swelling, muscle pain, muscle stiffness, others Integumetry: denies: bruises, change in color, change in hair/nails, dryness, laceration, lesions, lumps, rash, wounds, others Allergic/Immunocompromised: denies: Difficulty Healing, Frequent Infections, Hives, Itching, others Hematologic/Lymphatic: denies: anemia, blood clots, easy bleeding, easy bruising, swollen glands, others Endocrine: denies: excessive hunger, excessive sweating, excessive thirst, excessive urination, flushing, intolerance to cold, intolerance to heat, unexplained weight gain, unexplained weight loss, others Psychiatric: denies: anxiety, bipolar disorder, depression, hopeless, panic disorder, schizophrenia, sleepless, suicidal, others All Other Systems: Reviewed and Negative Physical Exam General Appearance: Moderate Distress HEENT: Normal ENT Inspection, Pharynx Normal, TMs Normal Neck: Full Range of Motion, Non-Tender, Normal, Normal Inspection Respiratory: Chest Non-Tender, Lungs Clear, No Accessory Muscle Use, No Respiratory Distress, Normal Breath Sounds Cardiovascular: No Edema, No JVD, No Murmur, No Gallop, Tachycardia Breast Exam: Deferred Gastrointestinal: No Organomegaly, Non Tender, No Pulsatile Mass, Normal Bowel Sounds, Soft Genitalia: Deferred Pelvic: Deferred Rectal: Deferred Extremities: No calf tenderness, Normal capillary refill, Normal inspection, Normal range of motion, Non-tender, No pedal edema Musculoskeletal : Apperance: Normal Neurologic: Alert, 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 Was a procedure done?: No Differential Dx Considerations may include: ACS, PR, generalized weakness X-Ray, Labs, Meds, VS Vital Signs Date Time Temp Pulse Resp B/P (MAP) Pulse Ox O2 Delivery O2 Flow Rate FiO2 01/09/25 15:15 122 01/09/25 14:55 99.0 139 19 145/97 (113) 96 99.0 Lab Test 01/09/25 16:20 01/09/25 15:23 Range/Units Troponin I High Sensitivity 18 22 </=54 ng/L White Blood Count 6.1 4.4-10.8 10^3/uL Red Blood Count 4.76 4.5-5.90 10^6/uL Hemoglobin 15.1 13.5-17.5 g/dL Hematocrit 43.9 41.0-53.0 % Mean Corpuscular Volume 92.2 80.0-100.0 fL Mean Corpuscular Hemoglobin 31.8 28.0-32.0 pg Mean Corpuscular Hemoglobin Concent 34.5 32.0-36.0 g/dL Red Cell Distribution Width 16.2 H 11.8-14.3 % Platelet Count 496 H 140-450 10^3/uL Mean Platelet Volume 7.3 6.9-10.8 fL Neutrophils (%) (Auto) 57.1 37.0-80.0 % Lymphocytes (%) (Auto) 28.1 10.0-50.0 % Monocytes (%) (Auto) 10.7 0.0-12.0 % Eosinophils (%) (Auto) 3.2 0.0-7.0 % Basophils (%) (Auto) 0.9 0.0-2.0 % Neutrophils # (Auto) 3.5 1.6-8.6 10 ^3/uL Lymphocytes # (Auto) 1.7 0.4-5.4 10 ^3/uL Monocytes # (Auto) 0.7 0-1.3 10 ^3/uL Eosinophils # (Auto) 0.2 0-0.8 10 ^3/uL Basophils # (Auto) 0.1 0-0.2 10 ^3/uL Nucleated Red Blood Cells 0.2 % Prothrombin Time 10.1 9.3-11.8 sec Prothrombin Time INR 0.95 0.9-1.15 Activated Partial Thromboplast Time 28.6 24.5-34.5 SEC D-Dimer, Quantitative 2.33 H 0.0-0.49 mg/L FEU Sodium Level 141 136-145 mmol/L Potassium Level 4.2 3.5-5.1 mmol/L Chloride Level 107 98-107 mmol/L Carbon Dioxide Level 21 20-31 mmol/L Anion Gap 13 5-15 Blood Urea Nitrogen 15 9-23 mg/dL Creatinine 1.28 0.700-1.30 mg/dL Glomerular Filtration Rate Calc 76 >90 mL/min BUN/Creatinine Ratio 11.7 10.0-20.0 Serum Glucose 149 H 74-106 mg/dL Calcium Level 10.6 H 8.7-10.4 mg/dL Current Medications Medications (Trade) Dose Ordered Sig/Virgen Route Start Time Stop Time Status Last Admin Sodium Chloride 1,000 ml @ 60 mls/hr [id number] IV 01/09/25 17:00 01/09/25 17:50 CAT scan of the chest was done to rule out PE. It shows: IMPRESSION: Bilateral pulmonary emboli involving the segmental and subsegmental branches. Right lower lobe consolidation/ nodularity measuring 2.5 cm. Follow-up to resolution to exclude underlying pulmonary neoplasm. Other findings as described. Critical Result: Pulmonary embolism The patient has a CBC which is within normal limits The chemistry panel is within normal limits The D-dimer is elevated at 2.33 IV Hep-Lock was established The patient was given heparin 4000 units IV push The patient was given a heparin drip The patient is being admitted at this time Images Reviewed?: Images reviewed and evaluated by me Time of 1ST Reevaluation: 15:32 Reevaluation 1ST: Improved Patient Education/Counseling: Diagnosis, Treatment, Prognosis Family Education/Counseling: No Family Present SEPSIS Sepsis Screen Physician Orders Heplock Iv (01/09/25 15:07) Ct Angio Chest Contrast (01/09/25 15:07) Troponin-I Hs (01/09/25 18:07) Platelet Monitoring (01/09/25 16:27) Vte Protocol Initiated (01/09/25 16:27) Heparin Per Standardized Proce (01/09/25 16:27) Discontinue All Im Injections (01/09/25 16:27) Heparin Drip/D5w 100units/Ml (01/09/25 21:00) *Consult / (01/09/25 16:49) Clonidine Hcl Tablet (Catapres Tablet) (01/09/25 17:00) Losartan Tablet (Cozaar Tablet) (01/10/25 10:00) Metoprolol Tartrate Tablet (Lopressor Ta (01/09/25 22:00) Allergies (01/09/25 16:49) Code Status (01/09/25 16:49) Sodium Chloride 0.9% (01/09/25 17:00) Oxygen Per Hour (01/09/25 16:49) Hydrocodone-Acet 5/325mg Tab ([place] 5/32 (01/09/25 17:00) Ondansetron Hcl (Zofran) (01/09/25 17:00) Docusate Sodium Capsule (Colace Capsule) (01/09/25 17:00) Complete Blood Count (01/10/25 04:00) Comprehensive Metabolic Panel (01/10/25 04:00) Cardiac Diet-2gna,Lofat,Lochol (01/09/25 Dinner) Condition: Serious (01/09/25 16:49) Acetaminophen Tablet (Tylenol Tablet) (01/09/25 17:00) Bedrest With Bathroom Privileg (01/09/25 16:49) Sequential Compression Device (01/09/25 ) Vital Signs Date Time Temp Pulse Resp B/P (MAP) Pulse Ox O2 Delivery O2 Flow Rate FiO2 01/09/25 15:15 122 01/09/25 14:55 99.0 139 19 145/97 (113) 96 99.0 Laboratory Tests Test 01/09/25 15:23 White Blood Count 6.1 10^3/uL (4.4-10.8) Medications Medications Dose Ordered Sig/Virgen Route Start Time Stop Time Status Last Admin Dose Admin Sodium Chloride 1,000 ml @ 60 mls/hr [id number] IV 01/09/25 17:00 01/09/25 17:50 Departure 1 Departure Time of Disposition: 16:50 Impression: Primary Impression: Bilateral pulmonary embolism Additional Impression: Left leg DVT Qualified Codes: I82.402 - Acute embolism and thrombosis of unspecified deep veins of left lower extremity Disposition: ADMITTED INPATIENT Admit to: [facility] Condition: Fair Critical Care Note Critical Care Time?: Yes (45 min-critical care time only) Stability Stability form required: Yes Unstable for transfer: Telemetry monitoring (Telemetry monitoring required), ED Physician Assesment (Clinical assesment) Heart Score Heart Score: Heart Score Response (Comments) Value History Slightly Suspicious 0 EKG Normal 0 Age <45 0 Risk Factors 1 or 2 risk factors 1 Troponin N/A 0 Total 1 I personally scribed for BEVERLY MUNOZ MD ([email or web address]) on 01/09/25 at 15:10. Electronically submitted by Gideon Noguera ([email or web address]). BEVERLY MUNOZ MD Jan 09, 2025 15:10
[2025-01-09] MEDS: IOHEXOL 350 MG/ML 100ML IJ ONE (15:43)
[2025-01-09 15:45] LABS: Hemoglobin 15.1 g/dL (13.5-17.5); Mean Corpuscular Volume 92.2 fL (80.0-100.0)
--- NOTE | 2025-01-09 15:45 | ECG ---
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
[2025-01-09 15:47] LABS: Hematocrit 43.9 % (41.0-53.0); Mean Corpuscular Hemoglobin 31.8 pg (28.0-32.0); Nucleated Red Blood Cells % 0.2 %
[2025-01-09 15:51] LABS: Potassium 4.2 mmol/L (3.5-5.1); Sodium 141 mmol/L (136-145)
[2025-01-09 15:52] LABS: Anion Gap 13 (5-15); Carbon Dioxide 21 mmol/L (20-31)
[2025-01-09 15:53] LABS: Calcium 10.6 mg/dL (8.7-10.4); Chloride 107 mmol/L (98-107)
[2025-01-09 15:57] LABS: BUN/Creatinine Ratio 11.7 (10.0-20.0); Blood Urea Nitrogen 15 mg/dL (9-23); Glucose 149 mg/dL (74-106)
[2025-01-09] MEDS ORDERED: HEPARIN SODIUM (PORCINE) 5000 UNITS/ML 1ML VIAL IV ONE (16:30)
--- NOTE | 2025-01-09 16:32 | DVH ---
Indication: cp Technique: CT axial images of the chest are obtained with intravenous contrast per CT angiogram prot ocol. Coronal and sagittal reformats were obtained. Radiation Dose Information: CTDI volume is 25 mGy. Dose-length product is 853 mGy*cm Comparison: None FINDINGS: There are filling defects within the right lower lobe segmental and subsegmental branches, left lower lobe segmental and subsegmental branches. RV measures 3.1 cm. LV measures 3.7 cm. The trachea is patent. No pneumothorax. There is right lower lobe consolidation/ nodularity measuring 2.5 cm. Heart normal in size. 8 mm right hilar lymph node. No supraclavicular/ axillary lymphadenopathy. No aggressive osseous process. IMPRESSION: Bilateral pulmonary emboli involving the segmental and subsegmental branches. Right lower lobe consolidation/ nodularity measuring 2.5 cm. Follow-up to resolution to exclude under lying pulmonary neoplasm. Other findings as described. Critical Result: Pulmonary embolism Findings discussed with BEVERLY MUNOZ at 01/09/2025 04:29 PM, and acknowledged receipt and understand ing of the findings. ..
[2025-01-09 16:45] LABS: INR 0.95 (0.9-1.15); Partial Thromboplastin Time 28.6 SEC (24.5-34.5); Prothrombin Time 10.1 sec (9.3-11.8)
[2025-01-09] MEDS ORDERED: ONDANSETRON HCL 4 MG/2 ML VIAL IV PRN (17:00)
[2025-01-09] MEDS ORDERED: ACETAMINOPHEN 325 MG TAB PO PRN (17:00)
[2025-01-09] MEDS ORDERED: DOCUSATE SOD 100 MG CAP PO PRN (17:00)
--- NOTE | 2025-01-09 17:17 | DVHHP2 ---
History of Present Illness Reason for Visit: Pulmonary embolism History of Present Illness The patient is a 34-year-old male with past medical history of left leg DVT presented to [facility] ED with complaint of shortness of breaths and neck pain. Patient reports that he was here on Wednesday and diagnosed with a DVT in his left leg, was admitted and discharged on Wednesday home with Justyn, had follow-up appointment with his primary care doctor today, and was referred back to the ER to rule out PE. Patient was seen and evaluated in the ED, laboratory data shows WBC 6.1, platelets 496, sodium 141, potassium 4.2, BUN 15, creatinine 1.28, glucose 149, calcium 10.6, troponin 18, D-dimer 2.33, blood pressure 145/97, heart rate 96, temperature 99.0 F, O2 saturation 96% on oxygen. CT Angiography revealing bilateral pulmonary emboli involving the segmental and subsegmental branches, right lower lobe consolidation/nodularity measuring 2.5 cm; follow-up to resolution to exclude underlying pulmonary neoplasm. Patient was started on heparin drip, please see medication orders section in the computer. On my assessment, patient denied chest pain, no headache, no dizziness, currently on oxygen, no nausea, no vomiting, no fever, no chills. Patient was admitted for further evaluation and medical management. Past Medical History Left leg DVT Past Surgical History Denies all surgeries Family History Reviewed, noncontributory to the management of this case. Past Social History The patient lives at home, denies smoking, alcohol or illicit drugs abuse. Review of Systems Constitutional: No: Fever, Chills, Sweats, Weakness, Malaise, Other Eyes: No: Pain, Vision change, Conjunctivae inflammation, Eyelid inflammation, Other, Redness ENT: No: Ear pain, Ear discharge, Nose pain, Nose discharge, Nose congestion, Mouth pain, Mouth swelling, Throat pain, Throat swelling, Other Respiratory: Shortness of breath; No: Cough, Dry, SOB with excertion, Wheezing, Hemoptysis, Pleuritic Pain, Sputum, Wheezing, Other Cardiovascular: No: Chest Pain, Palpitations, Orthopnea, Paroxysmal Noc. Dyspnea, Edema, Lt Headedness, Other Gastrointestinal: No: Nausea, Vomiting, Abdominal Pain, Diarrhea, Constipation, Melena, Hematochezia, Other Genitourinary: No Dysuria, No Frequency, No Incontinence, No Hematuria, No Retention, No Other Musculoskeletal: other (Left leg pain), neck pain; No: shoulder pain, arm pain, back pain, hand pain, leg pain, foot pain Skin: No: Rash, Lesions, Jaundice, Bruising, Other Neurological: No: Weakness, Numbness, Incoordination, Change in speech, Confusion, Seizures, Other Allergies: Coded Allergies: NO KNOWN ALLERGIES (Unverified , 01/05/25) Medications Current Medications Medications Dose Ordered Sig/Virgen Route Start Time Stop Time Status Last Admin Dose Admin Heparin Sodium/ Dextrose 250 ml @ 18 mls/hr [id number] IV 01/09/25 21:00 Clonidine HCl 0.1 mg Q4HP PRN PO 01/09/25 17:00 UNV Losartan Potassium 50 mg DAILY PO 01/10/25 10:00 UNV Metoprolol Tartrate 25 mg BID PO 01/09/25 22:00 UNV Sodium Chloride 1,000 ml @ 60 mls/hr [id number] IV 01/09/25 17:00 UNV Acetaminophen/ Hydrocodone Bitart 1 tab Q4HP PRN PO 01/09/25 17:00 UNV Ondansetron HCl 4 mg Q4HP PRN IV 01/09/25 17:00 UNV Docusate Sodium 100 mg BIDPRN PRN PO 01/09/25 17:00 UNV Acetaminophen 650 mg Q6HP PRN PO 01/09/25 17:00 UNV Exam Vital Signs Vital Signs Date Time Temp Pulse Resp B/P (MAP) Pulse Ox O2 Delivery O2 Flow Rate FiO2 01/09/25 15:15 122 01/09/25 14:55 99.0 19 145/97 (113) 96 99.0 General Appearance: Alert, Oriented X3, Cooperative, No acute distress HEENT: Atraumatic, PERRLA, EOMI, Mucous membr. moist/pink Respiratory: Clear to auscultation, Normal air movement, Other (Shortness of breaths) Cardiovascular: Regular rate, Normal S1, Normal S2, No murmurs Abdominal: Normal bowel sounds, Soft, No tenderness, No hepatospenomegaly, No masses Extremities: No clubbing, No cyanosis, No edema, Normal pulses, Other (Left lower extremity tenderness) Skin: No rashes, No breakdown, No significant lesion Neuro: Normal gait, Normal speech, Strength at 5/5 X4 ext, Normal tone, Sensation intact, Cranial nerves 3-12 NL, Reflexes 2+ Psych/Mental Status: Mental status NL, Mood NL Labs/Xrays Labs Test 01/09/25 16:20 01/09/25 15:23 Range/Units Troponin I High Sensitivity 18 </=54 ng/L White Blood Count 6.1 4.4-10.8 10^3/uL Red Blood Count 4.76 4.5-5.90 10^6/uL Hemoglobin 15.1 13.5-17.5 g/dL Hematocrit 43.9 41.0-53.0 % Mean Corpuscular Volume 92.2 80.0-100.0 fL Mean Corpuscular Hemoglobin 31.8 28.0-32.0 pg Mean Corpuscular Hemoglobin Concent 34.5 32.0-36.0 g/dL Red Cell Distribution Width 16.2 H 11.8-14.3 % Platelet Count 496 H 140-450 10^3/uL Mean Platelet Volume 7.3 6.9-10.8 fL Neutrophils (%) (Auto) 57.1 37.0-80.0 % Lymphocytes (%) (Auto) 28.1 10.0-50.0 % Monocytes (%) (Auto) 10.7 0.0-12.0 % Eosinophils (%) (Auto) 3.2 0.0-7.0 % Basophils (%) (Auto) 0.9 0.0-2.0 % Neutrophils # (Auto) 3.5 1.6-8.6 10 ^3/uL Lymphocytes # (Auto) 1.7 0.4-5.4 10 ^3/uL Monocytes # (Auto) 0.7 0-1.3 10 ^3/uL Eosinophils # (Auto) 0.2 0-0.8 10 ^3/uL Basophils # (Auto) 0.1 0-0.2 10 ^3/uL Nucleated Red Blood Cells 0.2 % Prothrombin Time 10.1 9.3-11.8 sec Prothrombin Time INR 0.95 0.9-1.15 Activated Partial Thromboplast Time 28.6 24.5-34.5 SEC D-Dimer, Quantitative 2.33 H 0.0-0.49 mg/L FEU Sodium Level 141 136-145 mmol/L Potassium Level 4.2 3.5-5.1 mmol/L Chloride Level 107 98-107 mmol/L Carbon Dioxide Level 21 20-31 mmol/L Anion Gap 13 5-15 Blood Urea Nitrogen 15 9-23 mg/dL Creatinine 1.28 0.700-1.30 mg/dL Glomerular Filtration Rate Calc 76 >90 mL/min BUN/Creatinine Ratio 11.7 10.0-20.0 Serum Glucose 149 H 74-106 mg/dL Calcium Level 10.6 H 8.7-10.4 mg/dL PATIENT: BETHANY PERLA ACCT: [id number] UNIT: [id number] : 1990 LOC: ER ROOM / BED: / AGE / SEX: 34 / M ADM STATUS: REG ER SERVICE 1507 ORDERING PHYSICIAN: BEVERLY MUNOZ MD PROCEDURE(s): CTACH - CT ANGIO CHEST CONTRAST REASON: cp ORDER NUMBER(s): [id number], ACCESSION NUMBER(s): [id number] Indication: cp Technique: CT axial images of the chest are obtained with intravenous contrast per CT angiogram protocol. Coronal and sagittal reformats were obtained. Radiation Dose Information: CTDI volume is 25 mGy. Dose-length product is 853 mGy*cm Comparison: None FINDINGS: There are filling defects within the right lower lobe segmental and subsegmental branches, left lower lobe segmental and subsegmental branches. RV measures 3.1 cm. LV measures 3.7 cm. The trachea is patent. No pneumothorax. There is right lower lobe consolidation/nodularity measuring 2.5 cm. Heart normal in size. 8 mm right hilar lymph node. No supraclavicular/ axillary lymphadenopathy. No aggressive osseous process. IMPRESSION: Bilateral pulmonary emboli involving the segmental and subsegmental branches. Right lower lobe consolidation/ nodularity measuring 2.5 cm. Follow-up to resolution to exclude underlying pulmonary neoplasm. Other findings as described. Critical Result: Pulmonary embolism SEPSIS Sepsis Screen Date sepsis recognized/suspect: Jan 09, 2025 Time Sepsis recognized/suspect: 1454 Recent Procedure: No On Antibiotic Therapy: No Respiratory Rate >20: No Heart Rate >90: No Temp<36 C (96.8 F) or >38.3 C: No SBP <90 or MAP <65 mmHG: No New Acute Mental Status Change: No Is the patient on CPAP, BIPAP,: No Physician Orders Heplock Iv (01/09/25 15:07) Ct Angio Chest Contrast (01/09/25 15:07) Troponin-I Hs (01/09/25 18:07) Platelet Monitoring (01/09/25 16:27) Vte Protocol Initiated (01/09/25 16:27) Heparin Per Standardized Proce (01/09/25 16:27) Discontinue All Im Injections (01/09/25 16:27) Heparin Drip/D5w 100units/Ml (01/09/25 21:00) *Consult / (01/09/25 16:49) Clonidine Hcl Tablet (Catapres Tablet) (01/09/25 17:00) Losartan Tablet (Cozaar Tablet) (01/10/25 10:00) Metoprolol Tartrate Tablet (Lopressor Ta (01/09/25 22:00) Allergies (01/09/25 16:49) Code Status (01/09/25 16:49) Sodium Chloride 0.9% (01/09/25 17:00) Oxygen Per Hour (01/09/25 16:49) Hydrocodone-Acet 5/325mg Tab ([place] 5/32 (01/09/25 17:00) Ondansetron Hcl (Zofran) (01/09/25 17:00) Docusate Sodium Capsule (Colace Capsule) (01/09/25 17:00) Complete Blood Count (01/10/25 04:00) Comprehensive Metabolic Panel (01/10/25 04:00) Cardiac Diet-2gna,Lofat,Lochol (01/09/25 Dinner) Condition: Serious (01/09/25 16:49) Acetaminophen Tablet (Tylenol Tablet) (01/09/25 17:00) Bedrest With Bathroom Privileg (01/09/25 16:49) Sequential Compression Device (01/09/25 ) Vital Signs Date Time Temp Pulse Resp B/P (MAP) Pulse Ox O2 Delivery O2 Flow Rate FiO2 01/09/25 15:15 122 01/09/25 14:55 99.0 139 19 145/97 (113) 96 99.0 Laboratory Tests Test 01/09/25 15:23 White Blood Count 6.1 10^3/uL (4.4-10.8) Assessment/Plan Assessment/Plan Bilateral pulmonary embolism Left leg DVT Acute embolism and thrombosis of unspecified deep veins of left lower extremity Plan 1. Admit to telemetry unit 2. Breathing treatment 3. Pain control management 4. Management of fluids and electrolytes 5. Consultation for hospitalist 6. Diagnostic tests CT angiography 7. DVT prophylaxis on heparin drip 8. Repeat labs CBC, CMP in a.m. 9. Continue with current medical management 10. Treatment plan discussed with patient and RN. Patient verbalized understanding. Plan discussed with: Patient, Other (RN) My Orders Orders - AIDA YUEN DNP Procedure Category Date Status Time *Consult CONS 01/09/25 Transmitted / 16:49 Clonidine Hcl Tablet PHA 01/09/25 Logged (Catapres Tablet) 17:00 Losartan Tablet PHA 01/10/25 Logged (Cozaar Tablet) 10:00 Metoprolol Tartrate PHA 01/09/25 Logged Tablet (Lopressor Ta 22:00 Allergies BELA 01/09/25 In Process 16:49 Code Status CODE 01/09/25 Transmitted 16:49 Sodium Chloride 0.9% PHA 01/09/25 Logged 17:00 Oxygen Per Hour RT 01/09/25 Transmitted 16:49 Hydrocodone-Acet PHA 01/09/25 Logged 5/325mg Tab ([place] 17:00 Ondansetron Hcl PHA 01/09/25 Logged (Zofran) 17:00 Docusate Sodium PHA 01/09/25 Logged Capsule (Colace 17:00 Complete Blood Count LAB 01/10/25 Verified 04:00 Comprehensive LAB 01/10/25 Verified Metabolic Panel 04:00 Cardiac DIET 01/09/25 Transmitted Diet-2gna,Lofat,Lochol Dinner Condition: Serious BELA 01/09/25 In Process 16:49 Acetaminophen Tablet PHA 01/09/25 Logged (Tylenol Tablet) 17:00 Bedrest With Bathroom BELA 01/09/25 In Process Privileg 16:49 Sequential BELA 01/09/25 In Process Compression Device Problem List: (1) Bilateral pulmonary embolism (2) Left leg DVT (3) Acute embolism and thrombosis of unspecified deep veins of left lower extremity Date of Service: Jan 09, 2025 Billing Provider: AIDA YUEN DNP Common Visit Codes: [id number] INP/OBS CARE (HIGH) AIDA YUEN DNP Jan 09, 2025 17:17
[2025-01-09] MEDS ORDERED: NITROGLYCERIN 0.4 MG SL TAB SL PRN (17:30)
--- NOTE | 2025-01-09 17:34 | CONS ---
Pharmacy Clinical Information: NEW START HEPARIN DRIP, DVT PROTOCOL, PATIENT WEIGHT 101.2KG BY STANDING SCALE PATIENT LAST TOOK APIXABAN 01/09 ABOUT 9 AM 01/09 @ 2100, BOLUS 8100 UNITS HEPARIN IV, THEN INITIATE HEPARIN DRIP AT RATE 1800 UNITS/HR APTT DRAW SCHEDULED FOR 01/10 @0300 PER RX PROTOCOL NAVNEET PADILLA PHARMACIST Jan 09, 2025 17:34
[2025-01-09] MEDS: SODIUM CHLORIDE 0.9% 1,000 ML IV SCH (17:50)
[2025-01-09] MEDS: HYDROcodone-ACET 5/325MG TAB PO PRN (19:08)
[2025-01-09 21:24] VITALS: PULSE 93; RESP 18; O2SAT 98
[2025-01-09] MEDS: HEPARIN SODIUM (PORCINE) 5000 UNITS/ML 1ML VIAL IV ONE (21:57)
[2025-01-09] MEDS: HEPARIN DRIP/D5W 100UNITS/ML 250 ML IV SCH (21:58)
[2025-01-09] MEDS: METOPROLOL TARTRATE 25 MG TAB PO SCH (23:31)
[2025-01-10] VITALS (8 sets, daily range): BP systolic 108–142; BP diastolic 63–106; PULSE 66–97; RESP 18–98; TEMP 97.5–98.2; O2SAT 97–100
[2025-01-10 03:39] LABS: Hematocrit 40.6 % (41.0-53.0); Hemoglobin 13.9 g/dL (13.5-17.5); Mean Corpuscular Hemoglobin 31.6 pg (28.0-32.0); Mean Corpuscular Volume 92.2 fL (80.0-100.0); Nucleated Red Blood Cells % 0.1 %
[2025-01-10 03:47] LABS: Alkaline Phosphatase 59 U/L (46-116); Anion Gap 10 (5-15); BUN/Creatinine Ratio 14.6 (10.0-20.0); Blood Urea Nitrogen 15 mg/dL (9-23); Calcium 9.3 mg/dL (8.7-10.4); Carbon Dioxide 24 mmol/L (20-31); Chloride 104 mmol/L (98-107); Glucose 102 mg/dL (74-106); Potassium 4.2 mmol/L (3.5-5.1); Sodium 138 mmol/L (136-145)
[2025-01-10 03:48] LABS: Total Protein 7.2 g/dL (5.7-8.2)
[2025-01-10 03:49] LABS: Albumin 4.5 g/dL (3.2-4.8); Bilirubin, Total 0.4 mg/dL (0.2-1.0)
[2025-01-10 03:50] LABS: Alanine Aminotransferase 102 U/L (7-40)
[2025-01-10 03:55] LABS: INR 0.97 (0.9-1.15); Prothrombin Time 10.3 sec (9.3-11.8)
[2025-01-10 03:56] LABS: Partial Thromboplastin Time > 139.0 SEC (24.5-34.5)
[2025-01-10] MEDS: HEPARIN DRIP/D5W 100UNITS/ML 250 ML IV SCH (05:08)
[2025-01-10] MEDS: LOSARTAN POTASSIUM 50 MG TAB PO SCH (10:09)
[2025-01-10 12:12] LABS: INR 0.95 (0.9-1.15); Partial Thromboplastin Time 62.1 SEC (24.5-34.5); Prothrombin Time 10.1 sec (9.3-11.8)
--- NOTE | 2025-01-10 12:26 | DVH ---
Bilateral lower extremity venous duplex Clinical History: elevated ddimer Comparison: US LT LOWER DVT on DOS: 01/05/25 Findings: Duplex Doppler evaluation of the deep venous systems of both lower extremities from the common femora l veins to the popliteal veins including color Doppler and spectral/pulsed waveform analysis was perf ormed. RIGHT SIDE: The common femoral vein demonstrates appropriate compressibility and waveform variability. There is compressibility/patency of the great saphenous vein at the proximal thigh. The femoral vein demonstrates appropriate compressibility and waveform variability. The deep femoral vein demonstrates appropriate compressibility and waveform variability. The popliteal vein demonstrates appropriate compressibility and waveform variability. There is normal compressibility at the tibioperoneal trunk. LEFT SIDE: The common femoral vein demonstrates appropriate compressibility and waveform variability. There is compressibility/patency of the great saphenous vein at the proximal thigh. The femoral vein demonstrates appropriate compressibility and waveform variability. The deep femoral vein demonstrates appropriate compressibility and waveform variability. The popliteal vein demonstrates appropriate compressibility and waveform variability. Noncompressibility of the posterior tibial veins. IMPRESSION: No right femoropopliteal venous thrombosis. Thrombus in the left posterior tibial vein. END IMPRESSION: If clinical concern/symptoms persist or worsen, short-interval follow-up study is suggested.
--- NOTE | 2025-01-10 16:15 | DVHPNRES ---
Progress Note Date Seen: Jan 10, 2025 Resident Creating Document: RAYMOND HOBBS RESIDENT Medical Necessity Reason Pt with a Central, PICC or Fol: No Subjective Review of Systems 34-year-old male with a past history of left DVT presented to [facility] for shortness of Breath and neck pain. Patient reports that he was here Wednesday and diagnosed with DVT in his left leg was admitted and discharged on Wednesday with Justyn. He then met his primary care doctor on Wednesday as he had sharp pain in his right side of the chest that was a 10/ 10 in intensity, sharp in nature and associated with shortness of Breath. He was stool that he needed a CT scan and sent to the hospital. Patient denies any nausea, vomiting, headache, dizziness, fever or chills. PMH: Left leg DVT PSH: Inguinal hernia repair in 2007 Family history: Reviewed and noncontributory to the management of this case Social history: Patient lives at home. He said he smokes for 5-6 years and stopped 2 years ago and he vapes now when in. He used to drink heavily every day until last week- 1.5 L vodka that he finished in 3 days. He denies ever taking any drugs Home medications: Sildenafil sometimes Allergies: None ROS: The patient reports that he has underlying pain everywhere in his chest and that is aggravated on movement. He says at rest he feels all right but when he sits up or tries to do any activity, he slightly feels lightheaded and has shortness of breath. He has no other new complaints. Rest of the ROS is negative Objective vital signs Vital Sign Date Time Temp Pulse Resp B/P (MAP) Pulse Ox O2 Delivery O2 Flow Rate FiO2 01/10/25 12:37 98.2 86 21 116/63 (80) 100 98.2 01/10/25 08:00 Room Air* 0 21 Total Intake and Output 01/09/25 01/09/25 01/10/25 15:00 23:00 07:00 Intake Total 500 ml Balance 500 ml medications Current Medications Medications Dose Ordered Sig/Virgen Route Start Time Stop Time Status Last Admin Dose Admin Losartan Potassium 50 mg DAILY PO 01/10/25 10:00 01/10/25 10:09 50 MG Acetaminophen/ Hydrocodone Bitart 1 tab Q4HP PRN PO 01/09/25 17:00 01/10/25 10:08 1 TAB Ondansetron HCl 4 mg Q4HP PRN IV 01/09/25 17:00 Docusate Sodium 100 mg BIDPRN PRN PO 01/09/25 17:00 Acetaminophen 650 mg Q6HP PRN PO 01/09/25 17:00 Nitroglycerin 0.4 mg Q5MINP PRN SL 01/09/25 17:30 Morphine Sulfate 2 mg Q30M PRN IV 01/09/25 17:30 Heparin Sodium/ Dextrose 250 ml @ 15 mls/hr [id number] IV 01/10/25 05:00 01/10/25 05:08 15 MLS/HR Ceftriaxone Sodium 50 ml @ 100 mls/hr DAILY@09 IV 01/11/25 09:00 Morphine Sulfate 1 mg Q6HP PRN IV 01/10/25 15:45 Azithromycin 250 ml @ 125 mls/hr DAILY IV 01/11/25 10:00 Examination General Appearance: Alert, Oriented X3, Cooperative, No acute distress HEENT: Atraumatic, PERRLA, EOMI, Mucous membr. moist/pink Respiratory: Clear to auscultation, Normal air movement, Other (Shortness of breaths On exertion), diminished breath sounds Cardiovascular: Regular rate, Normal S1, Normal S2, No murmurs Abdominal: Normal bowel sounds, Soft, No tenderness, No hepatospenomegaly, No masses Extremities: No clubbing, No cyanosis, No edema, Normal pulses, Other (Left lower extremity tenderness and slight swelling of the left feet more than the right) Skin: No rashes, No breakdown, No significant lesion Neuro: Normal gait, Normal speech, Strength at 5/5 X4 ext, Normal tone, Sensation intact, Cranial nerves 3-12 NL, Reflexes 2+ Psych/Mental Status: Mental status NL, Mood NL laboratory and microbiology Laboratory Tests 01/10/25 02:57 Test 01/10/25 02:57 Range/Units Serum Glucose 102 74-106 mg/dL Microbiology Date/Time Source Procedure Growth Status 01/09/25 23:50 Nose MRSA Screen - Final Complete Labs and/or images reviewed: Labs reviewed by me, Image(s) reviewed by me Problem List/Assessment/Plan Problem List/Assessment/Plan #Bilateral pulmonary embolism #Left leg DVT #Acute embolism and thrombosis of unspecified deep veins of left lower extremity -Pain control management -IV fluids -CT angiography showed: Bilateral pulmonary emboli involving the segmental and subsegmental branches; Right lower lobe consolidation/ nodularity measuring 2.5 cm. Follow-up to resolution to exclude underlying pulmonary neoplasm. -DVT prophylaxis on heparin drip -Monitor labs -Breathing treatment -Extremity venous study shows: No right femoropopliteal venous thrombosis; Thrombus in the left posterior tibial vein. -Rocephin and azithromycin -pulmonary consult workup the lung mass #Uncontrolled hypertension -Continue losartan and metoprolol -Monitor BP GI prophylaxis: Not required DVT prophylaxis: heparin Diet: regular Goals of care discussed with the patient for more than 27 minutes: Full code status Case discussed with Dr. Ang, patient and nurse. Plan discussed with: Patient, Other (rn) My Orders My Orders Orders - RAYMOND HOBBS Procedure Category Date Status Time Ceftriaxone 1gm/50ml PHA 25 In Process D5w (Rocephin) 09:00 Morphine Sulfate PHA 01/10/25 In Process Injection 15:45 Azithromycin 500mg/ PHA 25 In Process 250ml (Zithromax 50 10:00 Azithromycin 500mg/ PHA 25 In Process 250ml (Zithromax 50 16:00 Date of Service: Jan 10, 2025 Billing Provider: FELIX ANG MD Common Visit Codes: [id number] INP/OBS CARE(HIGH) RAYMOND HOBBS Jan 10, 2025 16:15 FELIX ANG MD Jan 10, 2025 23:39
[2025-01-10 16:29] LABS: INR 0.94 (0.9-1.15); Partial Thromboplastin Time 53.5 SEC (24.5-34.5); Prothrombin Time 10.0 sec (9.3-11.8)
[2025-01-10] MEDS: cefTRIAXone 1GM/50ML D5W 50 ML IV ONE (16:53)
[2025-01-10] MEDS: MORPHINE SULFATE INJ 2 MG/ml SYRG IV PRN (16:54)
--- NOTE | 2025-01-10 17:20 | DVH ---
CHEST RADIOGRAPH Indication: sob Technique: XY CHEST XRAY 1 VIEW COMPARISON: None FINDINGS: The cardiac silhouette is unremarkable. The lungs demonstrate bilateral patchy airspace opacities. Th e pulmonary vasculature is prominent. There is no pleural effusion. There is no pneumothorax. IMPRESSION: Pulmonary vascular congestion and bilateral patchy airspace opacities.
[2025-01-10] MEDS: AZITHROMYCIN 500MG/ 250ML 250 ML IV ONE (18:32)
--- NOTE | 2025-01-10 21:11 | DVHSR ---
APPROVED REPORT EXAM: Two-dimensional and M-mode echocardiogram with Doppler and color Doppler. Blood Pressure: 108/74 mmHg INDICATION Chest Pain RISK FACTORS Obesity: Height: 5'11, Weight: 233 DIMENSIONS LVDd4.5 (3.8-5.7cm)LA (2D)3.3 (1.9-4.0cm)Aortic Root3.9 (2.0-3.7cm) LVDs3.0 (2.5-4.0cm)LA (MM) (1.9-4.0cm)Aortic Cusp Exc2.0 (1.5-2.0cm) EF (%) 50.0 (55-70%)Rt. Atrium3.4 (1.9-4.0cm)Asc. Aorta3.3 cm IVSd1.2 (0.7-1.1cm)RV (D)4.3 (1.8-2.4cm) PWd1.2 (0.7-1.1cm) Mitral Valve MitralMitral Stenosis E wave0.69m/sMV Mean GR.mmHg A wave0.62m/sMV Peak GR.33mmHg E/A ratio1.12D MVAcm2 DECEL [id number] 1/2 Timems Aortic Valve Aortic ValveAortic Stenosis V10.89m/Guillermo Mean GR.3mmHg V21.01m/Guillermo Peak GR.4mmHg LVOT Diameter2.5 (1.8-2.4cm)Doppler AVA4.32cm2 Pulmonic Valve V20.91m/s Tricuspid Valve TR Velocity2.22m/s [id number] Conclusion LV EF IS 60% AND IS NORMAL NORMAL VALVES NORMAL RV FUNCTION AND PRESSURE NORMAL RVSP IS 23 MM OF HG AND IS NORMAL NO EFFUSION
[2025-01-10] MEDS: ENOXAPARIN SOD 100 MG/1 ML SYRINGE SC SCH (21:44)
[2025-01-11] VITALS (7 sets, daily range): BP systolic 126–150; BP diastolic 90–108; PULSE 76–112; RESP 17–20; TEMP 97.3–98.5; O2SAT 97–98
--- NOTE | 2025-01-11 06:51 | DVH ---
CHEST RADIOGRAPH Indication: f/u sob Technique: Single frontal view of the chest was obtained COMPARISON: XY CHEST XRAY 1 VIEW on DOS: 01/10/25 FINDINGS: Lines and Tubes: None Lungs: Clear Pleura: No effusion. No pneumothorax. Cardiomediastinal contours: Unremarkable Bones: Unremarkable IMPRESSION: 1. No acute disease.
[2025-01-11] MEDS: cefTRIAXone 1GM/50ML D5W 50 ML IV SCH (08:00)
[2025-01-11] MEDS: MORPHINE SULFATE INJ 2 MG/ml SYRG IV PRN ×2 (08:01→17:48)
[2025-01-11] MEDS: AZITHROMYCIN 500MG/ 250ML 250 ML IV SCH (09:12)
[2025-01-11 09:57] LABS: Mean Corpuscular Volume 92.5 fL (80.0-100.0); Nucleated Red Blood Cells % 0.1 %
[2025-01-11 09:59] LABS: Hematocrit 45.6 % (41.0-53.0); Hemoglobin 15.4 g/dL (13.5-17.5); Mean Corpuscular Hemoglobin 31.2 pg (28.0-32.0)
[2025-01-11 10:09] LABS: Alanine Aminotransferase 97 U/L (7-40); Albumin 5.0 g/dL (3.2-4.8); Alkaline Phosphatase 59 U/L (46-116); Anion Gap 9 (5-15); BUN/Creatinine Ratio 10.8 (10.0-20.0); Bilirubin, Total 0.5 mg/dL (0.2-1.0); Blood Urea Nitrogen 10 mg/dL (9-23); Calcium 10.3 mg/dL (8.7-10.4); Carbon Dioxide 24 mmol/L (20-31); Chloride 104 mmol/L (98-107); Glucose 112 mg/dL (74-106); Potassium 4.5 mmol/L (3.5-5.1); Sodium 137 mmol/L (136-145); Total Protein 7.9 g/dL (5.7-8.2)
[2025-01-11] MEDS: DOXYCYCLINE 100MG/100ML 100 ML IV SCH (13:22)
[2025-01-11] MEDS: hydrALAZINE HCL 20 MG/ML VL IV ONE (13:23)
[2025-01-11] MEDS ORDERED: hydrALAZINE HCL 20 MG/ML VL IV PRN (14:00)
--- NOTE | 2025-01-11 14:00 | DVHPNRES ---
Progress Note Date Seen: Jan 11, 2025 Resident Creating Document: RAYMOND HOBBS RESIDENT Medical Necessity Reason Pt with a Central, PICC or Fol: No Subjective Review of Systems 34-year-old male with a past history of left DVT presented to [facility] for shortness of Breath and neck pain. Patient reports that he was here Wednesday and diagnosed with DVT in his left leg was admitted and discharged on Wednesday with Justyn. He then met his primary care doctor on Wednesday as he had sharp pain in his right side of the chest that was a 10/ 10 in intensity, sharp in nature and associated with shortness of Breath. He was stool that he needed a CT scan and sent to the hospital. Patient denies any nausea, vomiting, headache, dizziness, fever or chills. PMH: Left leg DVT PSH: Inguinal hernia repair in 2007 Family history: Reviewed and noncontributory to the management of this case Social history: Patient lives at home. He said he smokes for 5-6 years and stopped 2 years ago and he vapes now when in. He used to drink heavily every day until last week- 1.5 L vodka that he finished in 3 days. He denies ever taking any drugs Home medications: Sildenafil sometimes Allergies: None ROS: the patient was seen and assessed by me in the bedside today. Overnight events were reviewed. Patient complains of her underlying pain in his chest all night and was unable to sleep. Right now after receiving morphine in the morning he says he feels better. Rest of the ROS is negative. Objective vital signs Vital Sign Date Time Temp Pulse Resp B/P (MAP) Pulse Ox O2 Delivery O2 Flow Rate FiO2 01/11/25 13:24 90 20 150/101 01/11/25 12:33 98.1 97 98.1 01/11/25 08:00 Room Air* 0 21 Total Intake and Output 01/10/25 01/10/25 01/11/25 15:00 23:00 07:00 Intake Total 300 ml 200 ml Output Total 600 ml Balance -300 ml 200 ml medications Current Medications Medications Dose Ordered Sig/Virgen Route Start Time Stop Time Status Last Admin Dose Admin Losartan Potassium 50 mg DAILY PO 01/10/25 10:00 01/11/25 09:16 50 MG Acetaminophen/ Hydrocodone Bitart 1 tab Q4HP PRN PO 01/09/25 17:00 01/10/25 20:32 1 TAB Ondansetron HCl 4 mg Q4HP PRN IV 01/09/25 17:00 Docusate Sodium 100 mg BIDPRN PRN PO 01/09/25 17:00 Acetaminophen 650 mg Q6HP PRN PO 01/09/25 17:00 Nitroglycerin 0.4 mg Q5MINP PRN SL 01/09/25 17:30 Morphine Sulfate 2 mg Q30M PRN IV 01/09/25 17:30 01/11/25 13:24 2 MG Ceftriaxone Sodium 50 ml @ 100 mls/hr DAILY@09 IV 01/11/25 09:00 01/11/25 08:00 100 MLS/HR Enoxaparin Sodium 100 mg Q12HR SC 01/10/25 22:00 01/11/25 09:16 100 MG Doxycycline Hyclate 100 ml @ 50 mls/hr Q12H IV 01/11/25 12:00 01/11/25 13:22 50 MLS/HR Morphine Sulfate 2 mg Q4HPRN PRN IV 01/11/25 12:00 Hydralazine HCl 10 mg Q6HP PRN IV 01/11/25 14:00 UNV Examination HEENT: Atraumatic, PERRLA, EOMI, Mucous membr. moist/pink Respiratory: Clear to auscultation, Normal air movement, Other (Shortness of breaths On exertion), diminished breath sounds Cardiovascular: Regular rate, Normal S1, Normal S2, No murmurs Abdominal: Normal bowel sounds, Soft, No tenderness, No hepatospenomegaly, No masses Extremities: No clubbing, No cyanosis, No edema, Normal pulses, Other (Left lower extremity tenderness and slight swelling of the left feet more than the right) Skin: No rashes, No breakdown, No significant lesion Neuro: Normal gait, Normal speech, Strength at 5/5 X4 ext, Normal tone, Sensation intact, Cranial nerves 3-12 NL, Reflexes 2+ Psych/Mental Status: Mental status NL, Mood NL laboratory and microbiology Laboratory Tests 01/11/25 09:15 Test 01/11/25 09:15 Range/Units Serum Glucose 112 H 74-106 mg/dL Microbiology Date/Time Source Procedure Growth Status 01/09/25 23:50 Nose MRSA Screen - Final Complete Labs and/or images reviewed: Labs reviewed by me, Image(s) reviewed by me Problem List/Assessment/Plan Problem List/Assessment/Plan #Bilateral pulmonary embolism #Left leg DVT #Acute embolism and thrombosis of unspecified deep veins of left lower extremity -Pain control management, morphine increased to 2 g Q 4 today -IV fluids -CT angiography showed: Bilateral pulmonary emboli involving the segmental and subsegmental branches; Right lower lobe consolidation/ nodularity measuring 2.5 cm. Follow-up to resolution to exclude underlying pulmonary neoplasm. -DVT prophylaxis on heparin drip -Monitor labs -Breathing treatment -Extremity venous study shows: No right femoropopliteal venous thrombosis; Thrombus in the left posterior tibial vein. -Rocephin and azithromycin; -azithromycin stopped and changed to doxycycline (as patient was unable to tolerate azithromycin) - repeat x-ray showed no acute disease -pulmonary consult workup the lung mass, pending #Uncontrolled hypertension -Continue losartan and metoprolol -Monitor BP -hydralazine 10 mg q.6 PRN GI prophylaxis: Not required DVT prophylaxis: heparin Diet: regular Goals of care discussed with the patient for more than 27 minutes: Full code status Case discussed with Dr. Ang, patient and nurse. Plan discussed with: Patient, Other (rn) My Orders My Orders Orders - RAYMOND HOBBS Procedure Category Date Status Time Ceftriaxone 1gm/50ml PHA 01/11/25 In Process D5w (Rocephin) 09:00 Doxycycline PHA 01/11/25 In Process 100mg/100ml 12:00 Morphine Sulfate PHA 01/11/25 In Process Injection 12:00 Date of Service: Jan 11, 2025 Billing Provider: FELIX ANG MD Common Visit Codes: [id number] INP/OBS CARE(HIGH) RAYMOND HOBBS Jan 11, 2025 14:00 FELIX ANG MD Jan 13, 2025 11:04
--- NOTE | 2025-01-11 14:11 | DVHINCON2 ---
Date of service: Jan 10, 2025 Referring Physician Butch Maier NP Reason for Consultation Pulmonary embolism History of Present Illness History Source: Patient Exam Limitations: No limitations HPI Patient is a 34-year old gentleman with a history of admission where he was diagnosed with DVT and started on Eliquis who presented with tachycardia and shortness of breath. Was seen in the emergency room where CTA of the chest demonstrated bilateral pulmonary emboli and was started on Heparin drip for anticoagulation therapy. Right lower lobe consolidation/infarct was also noted on CT and pulmonology was consulted to assist in management. Home Meds Active Scripts Losartan Potassium (Losartan Potassium) 50 Mg Tab, 1 TAB PO DAILY, #90 TAB 1 Refill Prov:MIGUEL AGUILAR MD 01/07/25 Thiamine Hcl (VITAMIN B-1) 100 Mg Tb, 100 MG PO DAILY for 14 Days, #14 TAB Prov:MIGUEL AGUILAR MD 01/07/25 Ibuprofen Micronized (MOTRIN TABLET) 600 Mg Tb, 600 MG PO TID PRN for 10 Days, #30 TAB *Black box warning-NSAIDS can increase risk of [place] & hypertension, GI irritation, ulceration, bleed, perferation. Do not use post cardiac surgery. Use short duration/lowest effective dose. Prov:MIGUEL AGUILAR MD 01/07/25 Apixaban Base (ELIQUIS) 5 Mg Tab, 10 MG PO BID for 7 Days, #7 TAB 10MG BID X 7 DAYS THEN 5MG PO BID FOR AT LEAST 6 MONTHS FOR DVT/PE TREATMENT Prov:MIGUEL AGUILAR MD 01/07/25 Apixaban Base (ELIQUIS) 5 Mg Tab, 5 MG PO BID for 30 Days, #60 TAB 5 Refills Prov:MIGUEL AGUILAR MD 01/07/25 Past Medical History Cardiac: No pertinent Hx Pulmonary: No pertinent Hx Central Nervous System: No pertinent Hx GI: No pertinent Hx Hemotology/Oncology: No pertinent Hx Hepatobiliary: No pertinent Hx Psychiatric: No pertinent Hx Musculoskeletal: No pertinent Hx Rheumotologic: No pertinent Hx Infectious Disease: No peritnent Hx ENT: No pertinent Hx Renal/: No pertinent Hx Endocrine: No pertinent Hx Dermatology: No pertinent Hx Past Surgical History: No pertinent Hx Family History: Hypertension Patient Family History: Asthma G8 MOTHER Hypertension G8 MOTHER Smoker: No Hx (Negative) Alocohol: None Drugs: None Lives with: With family Domestic Violence: Neg Review of Systems Musculoskeletal: Other (BLE swelling ) H&P Exam Vital Signs Vital Signs Date Time Temp Pulse Resp B/P (MAP) Pulse Ox O2 Delivery O2 Flow Rate FiO2 01/11/25 09:16 155/109 01/11/25 08:51 92 18 01/11/25 08:30 97.7 97 97.7 01/10/25 20:00 Room Air* 0 21 General Appeara: Well developed, Well nourished, Normal Appearance Head Exam: Normal inspection Neck Exam: Normal inspection, Non-tender, Normal alignment Eye Exam: bilateral eye Normal inspection, bilateral eye PERRL, bilateral eye EOMI Ear Exam: bilateral ear Auricle normal, bilateral ear Canal normal, bilateral ear TM normal Nasal Exam: Normal inspection Mouth: Normal Inspection Pulmonary/Respiratory: Decreased breath sounds Cardiovascular/Chest: Normal inspection Peripheral Pulses: 4+ Radial (R), 4+ Radial (L), 4+ Brachial (R), 4+ Brachial (L) Abdominal Exam: Normal bowel sounds Labs/Xrays Labs Test 01/11/25 09:15 01/10/25 16:00 01/10/25 11:12 01/10/25 02:57 Range/Units White Blood Count 4.8 # 4.4-10.8 10^3/uL Red Blood Count 4.93 4.5-5.90 10^6/uL Hemoglobin 15.4 13.5-17.5 g/dL Hematocrit 45.6 # 41.0-53.0 % Mean Corpuscular Volume 92.5 80.0-100.0 fL Mean Corpuscular Hemoglobin 31.2 28.0-32.0 pg Mean Corpuscular Hemoglobin Concent 33.8 32.0-36.0 g/dL Red Cell Distribution Width 16.3 H 11.8-14.3 % Platelet Count 472 H 140-450 10^3/uL Mean Platelet Volume 7.3 6.9-10.8 fL Neutrophils (%) (Auto) 48.8 37.0-80.0 % Lymphocytes (%) (Auto) 33.8 10.0-50.0 % Monocytes (%) (Auto) 13.3 H 0.0-12.0 % Eosinophils (%) (Auto) 3.1 0.0-7.0 % Basophils (%) (Auto) 1.0 0.0-2.0 % Neutrophils # (Auto) 2.3 1.6-8.6 10 ^3/uL Lymphocytes # (Auto) 1.6 0.4-5.4 10 ^3/uL Monocytes # (Auto) 0.6 0-1.3 10 ^3/uL Eosinophils # (Auto) 0.1 0-0.8 10 ^3/uL Basophils # (Auto) 0 0-0.2 10 ^3/uL Nucleated Red Blood Cells 0.1 % Sodium Level 137 136-145 mmol/L Potassium Level 4.5 3.5-5.1 mmol/L Chloride Level 104 98-107 mmol/L Carbon Dioxide Level 24 20-31 mmol/L Anion Gap 9 5-15 Blood Urea Nitrogen 10 9-23 mg/dL Creatinine 0.93 0.700-1.30 mg/dL Glomerular Filtration Rate Calc 111 >90 mL/min BUN/Creatinine Ratio 10.8 10.0-20.0 Serum Glucose 112 H 74-106 mg/dL Calcium Level 10.3 8.7-10.4 mg/dL Total Bilirubin 0.5 0.2-1.0 mg/dL Aspartate Amino Transferase (AST) 95 H 13-40 U/L Alanine Aminotransferase (ALT) 97 H 7-40 U/L Alkaline Phosphatase 59 46-116 U/L Total Protein 7.9 5.7-8.2 g/dL Albumin 5.0 H 3.2-4.8 g/dL Prothrombin Time 10.0 9.3-11.8 sec Prothrombin Time INR 0.94 0.9-1.15 Activated Partial Thromboplast Time 53.5 H 24.5-34.5 SEC Magnesium Level 2.3 1.6-2.6 mg/dL Troponin I High Sensitivity 12 </=54 ng/L B-Type Natriuretic Peptide 0.85 0-100 pg/mL Test 01/09/25 15:33 01/09/25 15:23 Range/Units Hemoglobin A1c 5.9 H <5.7 % A1C D-Dimer, Quantitative 2.33 H 0.0-0.49 mg/L FEU Microbiology Date/Time Source Procedure Growth Status 01/09/25 23:50 Nose MRSA Screen - Final Complete Assessment/Plan Plan Impression Acute pulmonary embolism Right lower lobe consolidation/infarct Atelectasis Hx of DVT Patient seen and examined Events Low oxygen requirements On room air Vital signs stable Labs and imaging reviewed CTA of the chest shows bilateral pulmonary emboli involving the segmental and subsegmental branches. Right lower lobe consolidation/ nodularity measuring 2.5 cm. Follow-up to resolution to exclude underlying pulmonary neoplasm. Management Supplemental oxygen Titrate to maintain sats 90% or above Incentive spirometry Antibiotics Bronchodilators Monitor renal function Monitor electrolytes Supplement as needed Continue anticoagulation therapy Would benefit from pulmonology follow up as outpatient DVT prophylaxis Plan discussed with: Patient SAVITA CHEN MD Jan 11, 2025 14:10
--- NOTE | 2025-01-11 14:13 | DVHPN2 ---
Progress Note - Dictate Date Seen: Jan 11, 2025 Medical Necessity Reason Pt with a Central, PICC or Fol: No vital signs Vital Sign Date Time Temp Pulse Resp B/P (MAP) Pulse Ox O2 Delivery O2 Flow Rate FiO2 01/11/25 09:16 155/109 01/11/25 08:51 92 18 01/11/25 08:30 97.7 97 97.7 01/10/25 20:00 Room Air* 0 21 Total Intake and Output 01/10/25 01/10/25 01/11/25 15:00 23:00 07:00 Intake Total 300 ml 200 ml Output Total 600 ml Balance -300 ml 200 ml medications Current Medications Medications Dose Ordered Sig/Virgen Route Start Time Stop Time Status Last Admin Dose Admin Losartan Potassium 50 mg DAILY PO 01/10/25 10:00 01/11/25 09:16 50 MG Acetaminophen/ Hydrocodone Bitart 1 tab Q4HP PRN PO 01/09/25 17:00 01/10/25 20:32 1 TAB Ondansetron HCl 4 mg Q4HP PRN IV 01/09/25 17:00 Docusate Sodium 100 mg BIDPRN PRN PO 01/09/25 17:00 Acetaminophen 650 mg Q6HP PRN PO 01/09/25 17:00 Nitroglycerin 0.4 mg Q5MINP PRN SL 01/09/25 17:30 Morphine Sulfate 2 mg Q30M PRN IV 01/09/25 17:30 01/10/25 16:54 2 MG Ceftriaxone Sodium 50 ml @ 100 mls/hr DAILY@09 IV 01/11/25 09:00 01/11/25 08:00 100 MLS/HR Morphine Sulfate 1 mg Q6HP PRN IV 01/10/25 15:45 01/11/25 08:01 1 MG Azithromycin 250 ml @ 125 mls/hr DAILY IV 01/11/25 10:00 Enoxaparin Sodium 100 mg Q12HR SC 01/10/25 22:00 01/11/25 09:16 100 MG laboratory and microbiology Laboratory Tests 01/11/25 09:15 Test 01/11/25 09:15 Range/Units Serum Glucose 112 H 74-106 mg/dL Assessment/Plan Impression Acute pulmonary embolism Right lower lobe consolidation/infarct Atelectasis Hx of DVT Patient seen and examined Events Low oxygen requirements On room air No distress Labs and imaging reviewed CTA of the chest shows bilateral pulmonary emboli involving the segmental and subsegmental branches. Right lower lobe consolidation/ nodularity measuring 2.5 cm. Follow-up to resolution to exclude underlying pulmonary neoplasm. Management Supplemental oxygen Titrate to maintain sats 90% or above Incentive spirometry Continue antibiotics F/u cultures Bronchodilators Monitor renal function Monitor electrolytes Supplement as needed Continue anticoagulation therapy Okay to transition to [facility] Would benefit from pulmonology follow up as outpatient DVT prophylaxis Plan discussed with: Patient SAVITA CHEN MD Jan 11, 2025 14:12
[2025-01-12 01:00] VITALS: BP 137/112; PULSE 91; RESP 16; TEMP 98.4; O2SAT 97
[2025-01-12 05:00] VITALS: BP 146/106; PULSE 87; RESP 16; TEMP 98; O2SAT 96
[2025-01-12 07:56] LABS: Hematocrit 45.5 % (41.0-53.0); Hemoglobin 15.5 g/dL (13.5-17.5); Mean Corpuscular Hemoglobin 31.1 pg (28.0-32.0); Mean Corpuscular Volume 91.1 fL (80.0-100.0); Nucleated Red Blood Cells % 0.0 %
[2025-01-12 08:00] VITALS: PULSE 76; RESP 16
[2025-01-12 08:13] LABS: Alkaline Phosphatase 59 U/L (46-116); Anion Gap 9 (5-15); BUN/Creatinine Ratio 9.0 (10.0-20.0); Bilirubin, Total 0.6 mg/dL (0.2-1.0); Blood Urea Nitrogen 10 mg/dL (9-23); Carbon Dioxide 26 mmol/L (20-31); Chloride 100 mmol/L (98-107); Glucose 92 mg/dL (74-106); Potassium 4.4 mmol/L (3.5-5.1); Total Protein 8.1 g/dL (5.7-8.2)
[2025-01-12 08:20] LABS: Alanine Aminotransferase 88 U/L (7-40); Albumin 5.1 g/dL (3.2-4.8); Calcium 10.7 mg/dL (8.7-10.4); Sodium 135 mmol/L (136-145)
[2025-01-12 09:00] VITALS: BP 137/94; PULSE 85; RESP 18; TEMP 97.6; O2SAT 98
[2025-01-12 13:00] VITALS: BP 137/102; PULSE 96; RESP 20; TEMP 98.2; O2SAT 97
[2025-01-12 13:32] VITALS: BP 137/94; PULSE 75; TEMP 36.4
--- NOTE | 2025-01-12 15:46 | DVHPN2 ---
Progress Note - Dictate Date Seen: Jan 12, 2025 Medical Necessity Reason Pt with a Central, PICC or Fol: No Subjective Patient seen and examined at bedside. Breathing comfortably on room air. Overnight events reviewed. vital signs Vital Sign Date Time Temp Pulse Resp B/P (MAP) Pulse Ox O2 Delivery O2 Flow Rate FiO2 01/12/25 13:32 36.4 75 01/12/25 13:00 20 137/102 (114) 97 01/12/25 08:00 Room Air* 0 21 Total Intake and Output 01/11/25 01/11/25 01/12/25 15:00 23:00 07:00 Intake Total 50 ml 540 ml 1120 ml Balance 50 ml 540 ml 1120 ml objective Gen.: Patient lying in bed in no apparent distress. Breathing on room air. Head: Normocephalic, atraumatic. Eyes: EOMI/PERRLA. Ears: Normal hearing. Normal anatomy. Neck/trachea: Trachea midline, supple. Nose: Normal external anatomy. Mouth: Moist mucous membranes. Chest: Decreased air entry bilaterally. No wheezing or rhonchi. Cardiovascular: Positive S1, positive S2. Regular rate and rhythm. Abdomen: Positive bowel sounds in all 4 quadrants. Soft, non-tender, non- distended. : Deferred. Rectal: Deferred. Skin: Warm, dry. Intact. Extremities: 2+ radial pulses bilaterally. No lower extremity edema. Neuro: Awake, alert, oriented x3. No gross motor or sensory deficits. Cranial nerves II through XII intact. Gait not assessed. laboratory and microbiology Laboratory Tests 01/12/25 07:15 Test 01/12/25 07:15 Range/Units Serum Glucose 92 74-106 mg/dL Assessment/Plan Impression: Acute pulmonary embolism Right lower lobe pneumonia vs. infarct Atelectasis Hx of DVT Obesity Events: Patient seen and examined at bedside. Low oxygen requirements On room air No distress Patient is stable for discharge from the pulmonary standpoint PESI score of 0 We will discharge on apixaban course. 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 Follow up in Pulmonary Clinic as outpatient in 1-2 weeks. CXR on 01/11/25 reveals no acute disease. Labs and imaging reviewed CTA of the chest showed bilateral pulmonary emboli involving the segmental and subsegmental branches. Right lower lobe consolidation/nodularity measuring 2.5 cm. Follow-up to resolution to exclude underlying pulmonary neoplasm. Plan: Supplemental oxygen PRN Titrate to maintain sats 90% or above Incentive spirometry Complete antibiotics F/u cultures Bronchodilators Monitor renal function Monitor electrolytes Supplement as needed Continue anticoagulation therapy Recommend pulmonology followup as outpatient DVT prophylaxis Diet and lifestyle modifications for weight reduction. Prognosis: Guarded given patient's multiple co-morbidities. Rest of plan per hospitalist and other consultants. Thank you, Dr. Lainez, for allowing me to participate in this patient's care. Further recommendations will depend on the patient's clinical course. Please do not hesitate to contact me if you have any questions or concerns. This medical document was created using an electronic medical record system with [employer] dictation system. Although these documentations are being carefully reviewed, there may still be some phonetic and typographical changes. The errors are purely typographical, due to imperfection on the software program, and do not reflect any compromise in the patient's medical care. Plan discussed with: Patient, Other (RN) MARIELY LAGUERRE MD Jan 12, 2025 15:46
[2025-01-12] MEDS ORDERED: APIX5TAB PO (20:04)
[2025-01-12] MEDS ORDERED: DOXY1CAP58 PO (20:04)
--- NOTE | 2025-01-12 20:26 | DVHDSRES ---
Discharge Summary Date of Admission Resident Creating Document: RAYMOND HOBBS RESIDENT Jan 09, 2025 at 17:16 Date of Discharge: Jan 12, 2025 Admitting Diagnosis #Bilateral pulmonary embolism Labs/Diagnostic Data: Laboratory Results Test 01/12/25 07:15 01/10/25 16:00 01/10/25 11:12 01/10/25 02:57 White Blood Count 6.0 10^3/uL (4.4-10.8) Red Blood Count 4.99 10^6/uL (4.5-5.90) Hemoglobin 15.5 g/dL (13.5-17.5) Hematocrit 45.5 % (41.0-53.0) Mean Corpuscular Volume 91.1 fL (80.0-100.0) Mean Corpuscular Hemoglobin 31.1 pg (28.0-32.0) Mean Corpuscular Hemoglobin Concent 34.1 g/dL (32.0-36.0) Red Cell Distribution Width 15.8 % (11.8-14.3) Platelet Count 485 10^3/uL (140-450) Mean Platelet Volume 7.1 fL (6.9-10.8) Neutrophils (%) (Auto) 47.1 % (37.0-80.0) Lymphocytes (%) (Auto) 36.3 % (10.0-50.0) Monocytes (%) (Auto) 14.3 % (0.0-12.0) Eosinophils (%) (Auto) 1.4 % (0.0-7.0) Basophils (%) (Auto) 0.9 % (0.0-2.0) Neutrophils # (Auto) 2.8 10 ^3/uL (1.6-8.6) Lymphocytes # (Auto) 2.2 10 ^3/uL (0.4-5.4) Monocytes # (Auto) 0.9 10 ^3/uL (0-1.3) Eosinophils # (Auto) 0.1 10 ^3/uL (0-0.8) Basophils # (Auto) 0.1 10 ^3/uL (0-0.2) Nucleated Red Blood Cells 0.0 % Sodium Level 135 mmol/L (136-145) Potassium Level 4.4 mmol/L (3.5-5.1) Chloride Level 100 mmol/L (98-107) Carbon Dioxide Level 26 mmol/L (20-31) Anion Gap 9 (5-15) Blood Urea Nitrogen 10 mg/dL (9-23) Creatinine 1.11 mg/dL (0.700-1.30) Glomerular Filtration Rate Calc 90 mL/min (>90) BUN/Creatinine Ratio 9.0 (10.0-20.0) Serum Glucose 92 mg/dL (74-106) Calcium Level 10.7 mg/dL (8.7-10.4) Total Bilirubin 0.6 mg/dL (0.2-1.0) Aspartate Amino Transferase (AST) 83 U/L (13-40) Alanine Aminotransferase (ALT) 88 U/L (7-40) Alkaline Phosphatase 59 U/L (46-116) Total Protein 8.1 g/dL (5.7-8.2) Albumin 5.1 g/dL (3.2-4.8) Prothrombin Time 10.0 sec (9.3-11.8) Prothrombin Time INR 0.94 (0.9-1.15) Activated Partial Thromboplast Time 53.5 SEC (24.5-34.5) Magnesium Level 2.3 mg/dL (1.6-2.6) Troponin I High Sensitivity 12 ng/L (</=54) B-Type Natriuretic Peptide 0.85 pg/mL (0-100) Test 01/09/25 15:33 01/09/25 15:23 Hemoglobin A1c 5.9 % A1C (<5.7) D-Dimer, Quantitative 2.33 mg/L FEU (0.0-0.49) Other Laboratory Tests 01/12/25 07:15 Brief Hx & Hospital Course: 34-year-old male with a past history of left DVT presented to [facility] for shortness of Breath and neck pain. Patient reports that he was here Wednesday and diagnosed with DVT in his left leg was admitted and discharged on Wednesday with Justyn. He then met his primary care doctor on Wednesday as he had sharp pain in his right side of the chest that was a 10/ 10 in intensity, sharp in nature and associated with shortness of Breath. He was stool that he needed a CT scan and sent to the hospital. Patient denies any nausea, vomiting, headache, dizziness, fever or chills. Brief history of hospitalization: Patient had bilateral pulmonary embolism, left leg DVT, acute embolism and thrombosis of unspecified deep veins of the left lower extremity. We gave him pain control management, morphine was increased to 2 g q.4 from q.6. We gave him IV fluids and CT angiography showed bilateral pulmonary emboli involving the segmental and subsegmental branches; Right lower lobe consolidation/ nodularity measuring 2.5 cm. Follow-up to resolution to exclude underlying pulmonary neoplasm. DVT prophylaxis was given as heparin drip. We monitored his lab and give him breathing treatments. Extremity venous study showed no right femoral popliteal venous thrombosis, thrombus in the left posterior tibial vein. Rocephin and azithromycin was given and later azithromycin was stopped and changed to doxycycline as patient was unable to tolerate azithromycin. Repeat x-ray shows no acute disease and Pulmonary consult was done for the left lung mass of 1.4 cm and outpatient follow up and repeat CT scan in 3-6 months was suggested. We have counseled the patient regarding the mass and the need for CT and he has communicated understanding. Patient has uncontrolled hypertension we continued losartan and metoprolol and we continue to monitor BP as well. Hydralazine 10 mg q.6 PRN was given as well. Patient is now stable for discharge. He is being discharged with Eliquis and doxycycline. patient is lying in bed HEENT: Atraumatic, PERRLA, EOMI, Mucous membr. moist/pink Respiratory: Clear to auscultation, Normal air movement, diminished breath sounds Cardiovascular: Regular rate, Normal S1, Normal S2, No murmurs Abdominal: Normal bowel sounds, Soft, No tenderness, No hepatospenomegaly, No masses Extremities: No clubbing, No cyanosis, No edema, Normal pulses, Other (Left lower extremity tenderness and slight swelling of the left feet more than the right) Skin: No rashes, No breakdown, No significant lesion Neuro: Normal gait, Normal speech, Strength at 5/5 X4 ext, Normal tone, Sensation intact, Cranial nerves 3-12 NL, Reflexes 2+ Psych/Mental Status: Mental status NL, Mood NL Operations or Procedures CT angio IMPRESSION: Bilateral pulmonary emboli involving the segmental and subsegmental branches. Right lower lobe consolidation/ nodularity measuring 2.5 cm. Follow-up to resolution to exclude underlying pulmonary neoplasm. Critical Result: Pulmonary embolism Findings discussed with BEVERLY MUNOZ at 01/09/2025 04:29 PM, and acknowledged receipt and understanding of the findings. extremity venous study IMPRESSION: No right femoropopliteal venous thrombosis. Thrombus in the left posterior tibial vein. END IMPRESSION: If clinical concern/symptoms persist or worsen, short-interval follow-up study is suggested. chest x-ray IMPRESSION: Pulmonary vascular congestion and bilateral patchy airspace opacities. repeat chest x-ray IMPRESSION: 1. No acute disease. Condition at Discharge: Stable Final Diagnosis/Problems List #Left leg DVT #Acute embolism and thrombosis of unspecified deep veins of left lower extremity #Uncontrolled hypertension Discharge Disposition: Home Discharge Instruct/Medications Diet: Consistent carbohydrate, Cardiac 2g Na,low cholest Activity: No Restrictions, As Tolerated Follow Up/Referral: Follow up with PCP in 1 week Follow up with Pulmonary Doctor for repeat CT Medications: As per EMR Continue home medication Scheduled Apixaban Base (Eliquis), 5 MG PO BID Apixaban Base (Eliquis), 10 MG PO BID Apixaban Base (Eliquis), 5 MG PO BID Apixaban Base (Eliquis), 10 MG PO BID Doxycycline (Monohydrate) (Doxycycline), 100 MG PO BID Losartan Potassium (Losartan Potassium), 1 TAB PO DAILY Thiamine Hcl (Vitamin B-1), 100 MG PO DAILY Scheduled PRN Ibuprofen Micronized (Motrin Tablet), 600 MG PO TID PRN Discharge Statement: "Patient was advised to return to the ER or call 911 if any headaches, dizziness, shortness of breath, chest pain, abdominal pain, bleeding, fevers, or worsening of medical condition. Patient was counseled about treatment plan, medications, possible side effects, patientverbalized understanding. All questions were answered to the best of my ability. This discharge took greater then 30 minutes in planning, reviewing documentation, counseling the patient, and discussing with other team members." ASSESSMENT ASSESSMENT Assessment Bilateral pulmonary embolism Left leg DVT Acute embolism and thrombosis of unspecified deep veins of left lower extremity Uncontrolled hypertension Date of Service: Jan 12, 2025 Billing Provider: FELIX ROSE MD Common Visit Codes: 00702-MDX/OBS DISCH DAY >30min RAYMOND HOBBS RESIDENT Jan 12, 2025 20:26 FELIX ROSE MD Jan 13, 2025 11:05
== END 2025-01-12 13:48 | disposition home or self-care (01) | DRG 176 ==
LOC: ER 14:46 → OVERFLOW 17:16 → TELE-EAST 21:08
PROVIDERS: ADMIT Internal Medicine; ATTEND Emergency Medicine
DX: I26.99 Other pulmonary embolism without acute cor pulmonale (principal); J98.11 Atelectasis; I82.442 Acute embolism and thrombosis of left tibial vein; I10 Essential (primary) hypertension; E66.9 Obesity, unspecified; Z68.31 Body mass index [BMI] 31.0-31.9, adult; Z82.5 Family history of asthma and other chronic lower respiratory diseases; Z82.49 Family history of ischemic heart disease and other diseases of the circulatory system; Z79.01 Long term (current) use of anticoagulants
CPT/HCPCS: 36415; 71045; 71275; 80048; 80053; 83036; 83735; 83880; 84484; 85025; 85379; 85610; 85730; 87081; 93005; 93306; 93970; 96365; 99291; G0378